=== PATIENT | female | born 1990 | race Caucasian/White ===

== ENCOUNTER 2016-09-03 12:53 | Emergency (ER) | payer MEDICAID ==
[~2016-09-03] VITALS: Wt 72.0 kg
[2016-09-03] MEDS ORDERED: morphine 4 MG/ML VIAL IV STA (14:49)
[2016-09-03] MEDS ORDERED: ONDANSETRON 4 MG INJ IV STA (14:49)
[2016-09-03 15:25] LABS: BASOPHILS % 0.4 % (0.0-2.0); EOSINOPHILS % 0.2 % (0.0-7.0); HEMOGLOBIN 14.6 g/dl (12.0-16.0); LYMPHOCYTES # 1.3 10^3/ul (0.8-2.9); LYMPHOCYTES % 13.7 % (15.0-51.0); MEAN CORPUSCULAR HEMOGLOBIN 31.8 pg (29.0-33.0); MEAN CORPUSCULAR HGB CONC 34.8 g/dl (32.0-37.0); MEAN CORPUSCULAR VOLUME 91.3 fl (82.0-101.0); MEAN PLATELET VOLUME 6.4 fl (7.4-10.4); MONOCYTE # 0.4 10^3/ul (0.3-0.9); MONOCYTES % 4.3 % (0.0-11.0); NEUTROPHIL # 7.9 10^3/ul (1.6-7.5); NEUTROPHILS % 81.4 % (39.0-77.0); PLATELET COUNT 418 10^3/UL (140-440); RED BLOOD COUNT 4.59 10^6/ul (4.20-5.40); RED CELL DISTRIBUTION WIDTH 12.5 % (11.5-14.5); UNCORRECTED WBC 9.8 10^3/ul (4.8-10.8); WHITE BLOOD COUNT 9.8 10^3/ul (4.8-10.8)
[2016-09-03 15:31] LABS: CONDITION 1
[2016-09-03 15:33] LABS: ALBUMIN 4.8 g/dl (3.3-4.9); INR 0.9; PROTIME 12.1 Sec (12.2-14.2); PT RATIO 0.9
[2016-09-03 15:34] LABS: PARTIAL THROMBOPLASTIN TIME 30.7 Sec (25.0-35.0); POTASSIUM 4.1 mmol/L (3.5-5.1)
[2016-09-03] MEDS ORDERED: HYDROmorphONE 1 MG/ML SYG IV STA (15:34)
[2016-09-03 15:36] LABS: ALBUMIN/GLOBULIN RATIO 1.29; BILIRUBIN,INDIRECT 0.3 mg/dl (0-1.1); BILIRUBIN,TOTAL 0.3 mg/dl (0.2-1.3); CREATININE 0.74 mg/dl (0.44-1.00); TOTAL PROTEIN 8.5 g/dl (6.1-8.1)
[2016-09-03 15:37] LABS: CALCIUM 9.7 mg/dl (8.4-10.2)
[2016-09-03] MEDS ORDERED: HYDR-906 PO (15:53)
[2016-09-03] MEDS ORDERED: IBUP-1542 PO (15:54)
[2016-09-03] MEDS ORDERED: ONDA4TAB14 PO (15:54)
[2016-09-03] MEDS ORDERED: IOHEXOL 100 ML ONE (16:04)
[2016-09-03] MEDS ORDERED: SOD CHLORIDE 0.9% 100 ML ONE (16:04)
[2016-09-03] MEDS ORDERED: IOHEXOL 350MG/ML 50 ML BTL ONE (16:04)
--- NOTE | 2016-09-03 16:04 | ERD ---
ER Documentation Chief Complaint Date/Time DATE: 09/03/16 TIME: 15:58 Chief Complaint right knee pain for the past few weeks.pt ran out of pain meds. HPI Patient is a 25-year-old female with past medical history of Von Willebrand's disease, interstitial cystitis who presents to the emergency department with right knee pain. On 08/09/16 the patient had a slip and fall injury on her wooden floors at home. She brings MRI imaging from that day which shows a depressed fracture of the anterior lateral tibial plateau that is depressed approximately 3 mm, grade 2 sprain of the fibular contralateral ligament, large lipohemarthrosis the suprapatellar bursa, tendinosis of the distal patella tendon. On 08/22/16, patient states that she injured her knee while going down her driveway while using her crutches. She reports falling at that time. Patient states that she went to [facility] at that time and had a CT of her right knee without contrast. Patient brings CT report in which shows a comminuted and depressed lateral tibial plateau fracture most consistent with Schatzker II fracture, large joint effusion. Patient states that she saw an culinary specialist after her second injury and was advised that she would need a surgical correction. Per patient, given that she does not have current insurance coverage, surgeon was unable to provide services. Today, patient states that she woke up with severe 10/10 pain. Patient states that she is having numbness from her knee down. She is unsure if she twisted her leg in her sleep because she was not wearing her knee immobilizer. Patient states that she is unable to move her knee and ankle secondary to pain and swelling. She has normal range of motion at her toes. Patient denies any fevers , chills, nausea, vomiting. She has been nonweightbearing to the affected extremity, and ambulating with crutches. Patient denies any new falls or trauma to her right lower extremity today. ROS All systems reviewed and are negative except as per history of present illness. Medications Home Meds Active Scripts Ondansetron (Ondansetron Odt) 4 Mg Tab.rapdis, 4 MG PO Q6H Y for NAUSEA AND/OR VOMITING, #10 TAB Prov:CORRY THEODORE PA-C 09/03/16 Ibuprofen* (Motrin*) 600 Mg Tab, 600 MG PO Q6, #20 TAB Prov:MANISH THEODOREZOILA ROSARIO 09/03/16 Hydrocodone/Acetaminophen (Iota 5-325 Tablet) 1 Each Tablet, 1 TAB PO Q6H Y for PAIN, #10 TAB Prov:CORRY THEODORE ABRAHAM 09/03/16 PMhx/Soc History of Surgery: Yes (bladder, appendix) Anesthesia Reaction: No Hx Neurological Disorder: No Hx Respiratory Disorders: No Hx Cardiac Disorders: No Hx Psychiatric Problems: No Hx Miscellaneous Medical Probl: Yes (interstial cystitis, Von Willenbrand) Hx Alcohol Use: Yes (social) Hx Substance Use: No Hx Tobacco Use: No FmHx Family History: No diabetes Physical Exam Vitals Vital Signs Date Time Temp Pulse Resp B/P Pulse Ox O2 Delivery O2 Flow Rate FiO2 09/03/16 17:25 98.1 98 18 140/95 99 Room Air 09/03/16 13:03 98.6 103 20 138/79 98 Physical Exam GENERAL: Well-developed, well-nourished female. Appears in pain. Crying. HEAD: Normocephalic, atraumatic. EYES: Pupils are equally reactive bilaterally. EOMs grossly intact. No conjunctival erythema. ENT: Moist mucous membranes. No uvula deviation. No kissing tonsils. NECK: Supple. No lymphadenopathy or thyromegaly. No meningismus. LUNG: Clear to auscultation bilaterally. No rhonchi, wheezing, rales or coarse breath sounds. HEART: Regular rate and rhythm. No murmurs, rubs or gallops. ABDOMEN: No scars, ecchymosis or rashes noted. Soft, nontender, and nondistended. Positive bowel sounds in all four quadrants. No rebound tenderness , no guarding. (-) McBurneys point tenderness. No CVA tenderness. BACK: No midline tenderness. EXTREMITIES: Equal pulses bilaterally. No peripheral clubbing, cyanosis or edema. No unilateral leg swelling. NEUROLOGIC: Alert and oriented. Moving all four extremities without any difficulty. Normal speech. Steady gait. SKIN: Normal color. Warm and dry. No rashes or lesions. RIGHT KNEE: Knee immobilizer removed. No obvious deformity, erythema, ecchymosis. +Soft tissue swelling. Skin intact. Decreased range of motion secondary to pain and swelling. Tender to palpation of anterior knee and lateral knee. Unable to distinguish light touch. 2+ DP and DT pulses. Result Diagram: 09/03/16 1515 09/03/16 1515 Results 24 hrs Laboratory Tests Test 09/03/16 15:15 Activated Partial Thromboplast Time 30.7Sec Alanine Aminotransferase (ALT/SGPT) 20IU/L Albumin 4.8g/dl Albumin/Globulin Ratio 1.29 Alkaline Phosphatase 89IU/L Anion Gap 20 Aspartate Amino Transf (AST/SGOT) 20IU/L Basophils # 0.010^3/ul Basophils % 0.4% Blood Morphology Comment Blood Urea Nitrogen 17mg/dl Calcium Level 9.7mg/dl Carbon Dioxide Level 24mmol/L Chloride Level 103mmol/L Creatinine 0.74mg/dl Direct Bilirubin 0.00mg/dl Eosinophils # 0.010^3/ul Eosinophils % 0.2% Globulin 3.70g/dl Glucose Level 84mg/dl Hematocrit 42.0% Hemoglobin 14.6g/dl INR International Normalized Ratio 0.90 Indirect Bilirubin 0.3mg/dl Lymphocytes # 1.310^3/ul Lymphocytes % 13.7% Mean Corpuscular Hemoglobin 31.8pg Mean Corpuscular Hemoglobin Concent 34.8g/dl Mean Corpuscular Volume 91.3fl Mean Platelet Volume 6.4fl Monocytes # 0.410^3/ul Monocytes % 4.3% Neutrophils # 7.910^3/ul Neutrophils % 81.4% Nucleated Red Blood Cells # 0.010^3/ul Nucleated Red Blood Cells % 0.0/100WBC Platelet Count 46272^3/UL Potassium Level 4.1mmol/L Prothrombin Time 12.1Sec Prothrombin Time Ratio 0.9 Red Blood Count 4.5910^6/ul Red Cell Distribution Width 12.5% Sodium Level 143mmol/L Total Bilirubin 0.3mg/dl Total Protein 8.5g/dl White Blood Count 9.810^3/ul Current Medications Medications (Trade) Dose Ordered Sig/[place]ina Route PRN Reason Start Time Stop Time Status Last Admin Dose Admin Morphine Sulfate (morphine) 4 mg ONCE STAT IV 09/03/16 14:49 09/03/16 14:52 DC 09/03/16 15:05 Ondansetron HCl (Zofran Inj) 4 mg ONCE STAT IV 09/03/16 14:49 09/03/16 14:52 DC 09/03/16 15:05 Hydromorphone HCl (Dilaudid) 1 mg ONCE STAT IV 09/03/16 15:34 09/03/16 15:36 DC 09/03/16 15:41 IV Flush 10 ml 10 ml STK-MED ONCE .ROUTE 09/03/16 16:04 09/03/16 16:05 DC 09/03/16 16:36 Sodium Chloride 100 ml @ ud STK-MED ONCE .ROUTE 09/03/16 16:04 09/03/16 16:05 DC 09/03/16 16:37 Iohexol (Omnipaque) 100 ml @ ud STK-MED ONCE .ROUTE 09/03/16 16:04 09/03/16 16:05 DC 09/03/16 16:37 Iohexol (Omnipaque 350mg/ ml) 50 ml STK-MED ONCE .ROUTE 09/03/16 16:04 09/03/16 16:05 DC 09/03/16 16:37 Diclofenac Sodium (Dyloject) 37.5 mg ONCE STAT IV 09/03/16 16:38 09/03/16 16:40 DC 09/03/16 16:48 Procedures/MDM ED COURSE: The patient was stable throughout ED course. I kept the patient and/or family informed of laboratory and diagnostic imaging results throughout the ED course. DIAGNOSTIC IMAGING: Read by radiologist. DIAGNOSTIC IMAGING REPORT Patient: HARLEY ENAMORADO : 1990 Age: 25 Sex: F MR #: [id number] DOS: 09/03/16 1449 Ordering MD: CORRY THEODORE PA-C Location: [facility] Room/Bed: PROCEDURE: CT scan of the pelvis, and lower extremities with contrast. CT angiogram of the abdomen, pelvis, and lower extremities. CLINICAL INDICATION: Pelvic pain. Bilateral lower extremity pain. History of trauma to the right knee. Numbness in the right lower extremity. TECHNIQUE: CT scan of the pelvis, and lower extremities with contrast was performed with helical axial sections. The patient was scanned during intravenous administration of 120 ml of Omnipaque 350. 2-D coronal reformatted images were obtained from the axial source images. In addition, 3-D post processing was performed. Total exam DLP is 1135.26 mGy-cm. CTDIvol is 123.23 mGy. One or more of the following dose reduction techniques were used: Automated exposure control, adjustment of the mA and/or kV according to patient size, use of iterative reconstruction technique. COMPARISON: None available FINDINGS: CT pelvis: There is no pelvic lymphadenopathy or mass. The bladder and distal ureters are normal. The periappendiceal region is unremarkable with no evidence of appendicitis. There has been prior surgery in the region of the cecum. The bowel and mesentery are otherwise normal. There is no free fluid or free gas. The osseous structures of the pelvis are unremarkable with no fracture or lytic lesion. There is a right knee lateral tibial plateau fracture with mild inferior displacement. The osseous structures are otherwise unremarkable with no other fracture or lytic lesion. There is a large amount of fluid in the right knee joint. The soft tissues of the lower extremities are otherwise normal. CT angiogram: The common iliac arteries, internal iliac arteries, and external iliac arteries are normal. The common femoral arteries are normal. The superficial femoral arteries are normal and patent bilaterally. The popliteal arteries are normal and patent bilaterally. The arteries in the calves are normal and patent bilaterally. IMPRESSION: 1. Prior surgery in the region of the cecum. 2. Right knee lateral tibial plateau fracture with mild inferior displacement. 3. Large amount of fluid in the right knee joint. 4. Normal CT angiogram of the pelvis and both lower extremities. RPTAT: QQ .Mike Jaime MD, MD Date Time Electronically viewed and signed by .Mike Jaime MD, MD on 09/03/2016 16:35 .R/ CC: CORRY THEODORE PA-C Splint Application: The patient was verbally consented at bedside prior to knee immobilizer re- application. Patient's knee immobilizer was removed prior to examination/CT imaging. Patient was explained the risks, benefits and alternatives to this procedure. The patient was neurovascularly intact prior to and status post application of the splint. The patient tolerated the procedure well with no complications. Splint type: knee immobilizer Extremity: R knee Indication: tibial plateau fracture MEDICATIONS GIVEN: Morphine, Dilaudid, Dyloject Patient tolerated medication well with no adverse reactions. Patient reported some improvement in pain. MEDICAL DECISION MAKING: This is a 25 year old old who presents with severe right knee pain s/p numerous fall injuries. Patient was previously diagnosed with a tibial plateau fracture and told that she would need surgical correction. Vital signs were reviewed. Patient was afebrile. Given that patient reported new onset of numbness, CT angiogram of R lower extremity was ordered. Supervising physician, Dr. Urbina, was consulted prior to ordering these studies. CT angiogram showed Prior surgery in the region of the cecum. Right knee lateral tibial plateau fracture with mild inferior displacement. Large amount of fluid in the right knee joint. Normal CT angiogram of the pelvis and both lower extremities Given these findings, the patients presentation is most consistent with tibial plateau fracture with mild inferior displacement. No new fractures or dislocations were noted compared to previous reports. Patient has adequate blood flow to the extremities. Her numbness may be due to significant swelling and possible compression to a lower extremity nerve. At this time, unable to rule out any meniscus and knee ligament injuries. Patient was placed in a knee immobilizer and advised to remain NWB to affected extremity. Given that patient' s lack of insurance coverage, patient was advised that she would need to go to a [facility] facility for her surgical correction. [facility] information provided. PRESCRIPTIONS: Iota, Ibuprofen, Zofran Patient requested that she be given Percocet for pain. I advised her that I would not be able to prescribe her Percocet given that she was prescribed Percocet #60 tabs on 08/25/16 and #15 tabs on 06/09/16 per [facility] report. DISCHARGE: At this time, patient is stable for discharge and outpatient management. Discussed case with Dr. Urbina, supervising physician, who agrees with above plan. I have instructed the patient to go to [facility] for further management of her injury. I have instructed the patient to promptly return to the ER for any new or worsening symptoms including increased pain, swelling, redness, warmth or fever. The patient and/or family expressed understanding of and agreement with this plan. All questions were answered. Home care instructions were provided. Departure Diagnosis: Primary Impression: Tibial plateau fracture, right Encounter type: initial encounter Fracture type: closed Qualified Code: S82.141A - Tibial plateau fracture, right, closed, initial encounter Condition: Stable Patient Instructions: Fracture, Lower Extremity Referrals: [facility] YOU HAVE RECEIVED A MEDICAL SCREENING EXAM AND THE RESULTS INDICATE THAT YOU DO NOT HAVE A CONDITION THAT REQUIRES URGENT TREATMENT IN THE EMERGENCY DEPARTMENT. FURTHER EVALUATION AND TREATMENT OF YOUR CONDITION CAN WAIT UNTIL YOU ARE SEEN IN YOUR DOCTORS OFFICE WITHIN THE NEXT 1-2 DAYS. IT IS YOUR RESPONSIBILITY TO MAKE AN APPOINTMENT FOR FOLOW-UP CARE. IF YOU HAVE A PRIMARY DOCTOR --you should call your primary doctor and schedule an appointment IF YOU DO NOT HAVE A PRIMARY DOCTOR YOU CAN CALL OUR PHYSICIAN REFERRAL HOTLINE AT IF YOU CAN NOT AFFORD TO SEE A PHYSICIAN YOU CAN CHOSE FROM THE FOLLOWING [facility] [address] [facility]. [facility] [address] [facility] [address] [facility] [address] [facility]. [facility] [address] [facility]. [facility] [address] [facility]. [facility] YOU HAVE RECEIVED A MEDICAL SCREENING EXAM AND THE RESULTS INDICATE THAT YOU DO NOT HAVE A CONDITION THAT REQUIRES URGENT TREATMENT IN THE EMERGENCY DEPARTMENT. FURTHER EVALUATION AND TREATMENT OF YOUR CONDITION CAN WAIT UNTIL YOU ARE SEEN IN YOUR DOCTORS OFFICE WITHIN THE NEXT 1-2 DAYS. IT IS YOUR RESPONSIBILITY TO MAKE AN APPOINTMENT FOR FOLOW-UP CARE. IF YOU HAVE A PRIMARY DOCTOR --you should call your primary doctor and schedule and appointment IF YOU DO NOT HAVE A PRIMARY DOCTOR YOU CAN CALL OUR PHYSICIAN REFERRAL HOTLINE AT . IF YOU CAN NOT AFFORD TO SEE A PHYSICIAN YOU CAN CHOSE FROM THE FOLLOWING [facility] INSTITUTIONS: [facility] [address] [place] [address] [facility] [address] [place] [address] [facility] [address] [place] [address] [facility] Hours: Mon-Fri 9:00 AM - 5:00 PM Additional Instructions: Given patient's insurance coverage, I advised the patient to go immediately to [facility] for further evaluation and treatment for her fracture. Take Iota and Ibuprofen for pain. Take Zofran for nausea. Patient advised to keep knee immobilizer on and remain non-weight bearing to affected extremity. Patient has crutches to use. CORRY THEODORE PA-C Sep 03, 2016 16:04
--- NOTE | 2016-09-03 16:36 | RADRPT ---
PROCEDURE: CT scan of the pelvis, and lower extremities with contrast. CT angiogram of the abdomen , pelvis, and lower extremities. CLINICAL INDICATION: Pelvic pain. Bilateral lower extremity pain. History of trauma to the right knee. Numbness in the right lower extremity. TECHNIQUE: CT scan of the pelvis, and lower extremities with contrast was performed with helical a xial sections. The patient was scanned during intravenous administration of 120 ml of Omnipaque 350 . 2-D coronal reformatted images were obtained from the axial source images. In addition, 3-D post processing was performed. Total exam DLP is 1135.26 mGy-cm. CTDIvol is 123.23 mGy. One or more o f the following dose reduction techniques were used: Automated exposure control, adjustment of the m A and/or kV according to patient size, use of iterative reconstruction technique. COMPARISON: None available FINDINGS: CT pelvis: There is no pelvic lymphadenopathy or mass. The bladder and distal ureters are normal. The periappendiceal region is unremarkable with no evidence of appendicitis. There has been prior surgery in the region of the cecum. The bowel and mesentery are otherwise norm al. There is no free fluid or free gas. The osseous structures of the pelvis are unremarkable with no fracture or lytic lesion. There is a r ight knee lateral tibial plateau fracture with mild inferior displacement. The osseous structures a re otherwise unremarkable with no other fracture or lytic lesion. There is a large amount of fluid in the right knee joint. The soft tissues of the lower extremities are otherwise normal. CT angiogram: The common iliac arteries, internal iliac arteries, and external iliac arteries are normal. The com mon femoral arteries are normal. The superficial femoral arteries are normal and patent bilaterally. The popliteal arteries are normal and patent bilaterally. The arteries in the calves are normal and patent bilaterally. IMPRESSION: 1. Prior surgery in the region of the cecum. 2. Right knee lateral tibial plateau fracture with mild inferior displacement. 3. Large amount of fluid in the right knee joint. 4. Normal CT angiogram of the pelvis and both lower extremities. RPTAT: QQ .Mike Jaime MD, MD Date Time Electronically viewed and signed by .Mike Jaime MD, MD on 09/03/2016 16:35 .R/
[2016-09-03] MEDS ORDERED: DICLOFENAC SODIUM 37.5 MG/ML VIAL IV STA (16:38)
[2016-09-03 17:25] VITALS: BP 140/95; PULSE 98; RESP 18; TEMP 98.1
== END 2016-09-03 17:25 | disposition home or self-care (01) ==
LOC: FTE 12:53
DX: S82.141A Displaced bicondylar fracture of right tibia, initial encounter for closed fracture (principal); W18.39XA Other fall on same level, initial encounter; Y92.9 Unspecified place or not applicable
CPT/HCPCS: 29505; 73706; 80053; 85025; 85610; 85730; 96374; 96375; J1170; J2270; J2405; Q9967; Z7502; Z7610

== ENCOUNTER 2016-12-28 12:00 | Inpatient (IN) | payer MEDICAID, OTHER ==
[~2016-12-28] VITALS: Ht 157.5 cm; Wt 70.5 kg
[~2016-12-28 12:00] MED LIST: HYDR-906 PO; IBUP-1542 PO; ONDA4TAB14 PO
[2016-12-28 12:24] VITALS: Ht 157.5 cm; Wt 70.5 kg
[2016-12-28] MEDS ORDERED: ONDANSETRON 4 MG INJ IV STA (14:34)
[2016-12-28] MEDS ORDERED: HYDROmorphONE 1 MG/ML SYG IV STA (14:34)
[2016-12-28] MEDS ORDERED: SOD CHLORIDE 0.9% 1,000 ML IV STA (14:34)
[2016-12-28] MEDS ORDERED: CLON-412 PO (14:50)
[2016-12-28] MEDS ORDERED: TRAZ100T15 PO (14:51)
[2016-12-28] MEDS ORDERED: BUPR300T48 PO (14:51)
[2016-12-28] MEDS ORDERED: SERT100T PO (14:51)
[2016-12-28] MEDS ORDERED: METH54TA4 PO (14:51)
[2016-12-28 14:58] LABS: ADD SCAN DIFF NO
[2016-12-28 15:01] LABS: BASOPHILS % 0.3 % (0.0-2.0); EOSINOPHILS % 0.2 % (0.0-7.0); HEMATOCRIT 37.2 % (37.0-47.0); HEMOGLOBIN 12.2 g/dl (12.0-16.0); LYMPHOCYTES # 0.8 10^3/ul (0.8-2.9); LYMPHOCYTES % 13.2 % (15.0-51.0); MEAN CORPUSCULAR HEMOGLOBIN 28.4 pg (29.0-33.0); MEAN CORPUSCULAR HGB CONC 32.8 g/dl (32.0-37.0); MEAN CORPUSCULAR VOLUME 86.7 fl (82.0-101.0); MEAN PLATELET VOLUME 9.3 fl (7.4-10.4); MONOCYTE # 0.3 10^3/ul (0.3-0.9); MONOCYTES % 4.4 % (0.0-11.0); NEUTROPHIL # 4.7 10^3/ul (1.6-7.5); NEUTROPHILS % 81.7 % (39.0-77.0); PLATELET COUNT 322 10^3/UL (140-415); RED BLOOD COUNT 4.29 10^6/ul (4.20-5.40); RED CELL DISTRIBUTION WIDTH 13.1 % (11.5-14.5); WHITE BLOOD COUNT 5.7 10^3/ul (4.8-10.8)
[2016-12-28 15:15] LABS: ALBUMIN 4.4 g/dl (3.3-4.9)
[2016-12-28 15:16] LABS: POTASSIUM 3.6 mmol/L (3.5-5.1)
[2016-12-28 15:18] LABS: ALBUMIN/GLOBULIN RATIO 1.41; BILIRUBIN,INDIRECT 0.2 mg/dl (0-1.1); BILIRUBIN,TOTAL 0.2 mg/dl (0.2-1.3); CREATININE 0.82 mg/dl (0.44-1.00); TOTAL PROTEIN 7.5 g/dl (6.1-8.1)
[2016-12-28 15:19] LABS: CALCIUM 9.4 mg/dl (8.4-10.2)
--- NOTE | 2016-12-28 15:20 | RADRPT ---
PROCEDURE: XR Chest. CLINICAL INDICATION: Abdominal pain. TECHNIQUE: Single frontal view of the chest was obtained COMPARISON: No. FINDINGS: The soft tissues are normal. The bony elements are normal. The heart, cardiomediastinal silhouette and hilar structures are normal. The pulmonary vasculature is normal. There is a left-sided aorta. The lungs are clear. The costophrenic angles are normal. IMPRESSION: 1. Normal chest x-ray. RPTAT:AAJJ Physician Ann Marie Date Time Electronically viewed and signed by Kumar Rainey Physician on 12/28/2016 15:20 SHARON/
[2016-12-28 15:22] LABS: ADD UMIC YES; URINE BILIRUBIN (Dip) NEGATIVE (NEGATIVE); URINE BLOOD (Dip) 1+ (NEGATIVE); URINE COLOR LT. YELLOW (YELLOW); URINE GLUCOSE (Dip) NEGATIVE (NEGATIVE); URINE KETONES (Dip) NEGATIVE (NEGATIVE); URINE LEUKOCYTE ESTERASE (Dip) NEGATIVE (NEGATIVE); URINE NITRITE (Dip) NEGATIVE (NEGATIVE); URINE TOTAL PROTEIN (Dip) NEGATIVE (NEGATIVE); URINE UROBILINOGEN (Dip) 0.2 E.U./dL (0.1-1.0)
[2016-12-28 15:33] LABS: INR 0.91; PROTIME 12.3 Sec (12.2-14.2)
[2016-12-28 15:34] LABS: PARTIAL THROMBOPLASTIN TIME 32.1 Sec (25.0-35.0)
[2016-12-28 15:48] LABS: SQUAMOUS EPITHELIAL CELL,UR FEW; URINE RBCS 0-2 /HPF (0)
[2016-12-28] MEDS ORDERED: METOCLOPRAMIDE 10 MG INJ IV STA (15:57)
[2016-12-28] MEDS ORDERED: DICLOFENAC SODIUM 37.5 MG/ML VIAL IV STA (15:57)
[2016-12-28] MEDS ORDERED: HYDROmorphONE 1 MG/ML SYG IV PRN ×3 (17:00→20:00)
--- NOTE | 2016-12-28 18:11 | RADRPT ---
PROCEDURE: Retroperitoneal US. CLINICAL INDICATION: Flank pain, interstitial cystitis TECHNIQUE: Multiple sonographic images of the kidneys and retroperitoneum were obtained. The imag es were reviewed on a PACS workstation. COMPARISON: No prior studies are available for comparison. FINDINGS: The kidneys are normal in size, contour, cortical thickness and cortical echogenicity. The right kidney measures 11.7 cm. The left kidney measures 10.7 cm. No kidney stones are visualized. There is no evidence for hydronephrosis. The urinary bladder is decompressed by a Alcantara catheter and not seen. RPTAT: AA IMPRESSION: Unremarkable retroperitoneal ultrasound. Urinary bladder not visualized. .Alf Cristobal MD, MD Date Time Electronically viewed and signed by .Alf Cristobal MD, on 12/28/2016 18:11 .S/
[2016-12-28 19:00] VITALS: TEMP 98.9
[2016-12-28] MEDS: ONDANSETRON 4 MG INJ IV PRN ×2 (19:24→22:41)
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
--- NOTE | 2016-12-28 19:57 | QN ---
Documentation Comment a/p abd pain interstitial cystitis plan per order DENVER MITCHELL MD December 28, 2016 19:57
[2016-12-28] MEDS ORDERED: SOD CHLORIDE 0.9% 1,000 ML IV ONE (20:00)
[2016-12-28] MEDS ORDERED: BISACODYL (EC) 5 MG TAB PO PRN (20:00)
[2016-12-28] MEDS ORDERED: MAGNESIUM HYDROXIDE 30ML CUP PO PRN (20:00)
[2016-12-28] MEDS ORDERED: ZOLPIDEM 5 MG TAB PO PRN (20:00)
[2016-12-28] MEDS ORDERED: OXYCODONE/ACETAMINOPHEN (5/325) TAB PO PRN (20:00)
[2016-12-28] MEDS ORDERED: ACETAMINOPHEN 325 MG TAB PO PRN (20:00)
[2016-12-28] MEDS ORDERED: NACL 0.9% 3 ML SYG IV SCH (20:00)
[2016-12-28] MEDS: SOD CHLORIDE 0.9% 1,000 ML IV SCH (20:52)
[2016-12-28] MEDS: TOLTERODINE (SR) 4 MG CAP PO SCH (20:52)
[2016-12-28] MEDS ORDERED: SERTRALINE 100 MG TAB PO ONE (22:00)
[2016-12-28] MEDS: clonAZEPAM 0.5 MG TAB PO SCH (22:41)
[2016-12-28] MEDS: HYDROmorphONE 1 MG/ML SYG IV PRN (22:42)
--- NOTE | 2016-12-28 22:49 | QN ---
Documentation Comment [id number] DENVER MITCHELL MD December 28, 2016 22:49
[2016-12-28] MEDS ORDERED: METOCLOPRAMIDE 10 MG INJ IV PRN (23:30)
[2016-12-29] VITALS: BP 140/92; RESP 18
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
--- NOTE | 2016-12-29 05:13 | CONS ---
DATE OF ADMISSION: 12/28/2016 DATE OF CONSULTATION: 12/28/2016 REQUESTING PHYSICIAN: Spencer Mitchell MD Dear Spencer: Thank you for asking me to see this patient in urological consultation. HISTORY OF PRESENT ILLNESS: This is a 26-year-old female who presented to the emergency room gagan reynoso of abdominal pain and bladder spasm that are caused by her "interstitial cystitis." The patient s tated that she has a history of interstitial cystitis for over 9 years. She was initially in [place] f or about 7 years where she had seen a urologist over there, underwent cystoscopy, bladder biopsy, bl adder dilatation and instillation of DMSO and the patient moved to [place] about 2 years ago and she has not had any urologist after she moved here until recently where she started having a flareup of her interstitial cystitis and she has seen Kaushik, who I have requested her records fro m the previous doctor in [place] and she is her urologist. The patient states that when she has the fl areup she does have mostly cramping after she urinates and she does not know what is the bladder cap acity. She denies having any urinary tract infection and she could sleep the night without having t o get up and the urination itself is not painful. It is after she urinates and finish that she has a bladder spasm. She has been doing an interstitial cystitis diet and that avoiding any coffee or t ea or acidy juices or food, avoiding spicy food and alcohol and she thinks that also stress may aggr avate her condition. She is known to have von Willebrand's disease. PAST MEDICAL HISTORY: Also includes the patient is a 2 and she has 2 children, ages 9 and 7 . The patient also did have ovarian cyst for which she underwent surgery and they removed her appen catherine at the same time. ALLERGIES: 1. THE PATIENT IS ALLERGIC TO . 2. HYDROCODONE. 3. MORPHINE. PRESENT MEDICATIONS: 1. She is on Lovenox. 2. Protonix. 3. Zofran p.r.n. 4. p.r.n. 5. Percocet. 6. Dilaudid. 7. Colace. 8. Milk of magnesia. 9. Dulcolax. 10. Ambien. PHYSICAL EXAMINATION: GENERAL: Reveals a 26-year-old female. VITAL SIGNS: Her temperature is 98.9, pulse is 97, respiration 16, blood pressure 144/106. ABDOMEN: Soft. She does have some suprapubic tenderness. She does have a scar in the lower abdome n from her appendectomy and the right ovarian cystectomy. Also the patient has had surgery on her r ight knee area. PELVIC EXAM: No mass and no discharge. She does have an indwelling Alcantara catheter and she has requ ested to have the Alcantara catheter so she does not have to urinate and have any spasm after she voids. LABORATORY DATA: CBC shows a white count of 5.7, hemoglobin 12.2, hematocrit is 37.2. BUN is 7, cr eatinine 0.82, sodium 141, potassium 3.6, chloride 102, CO2 24. PT 12.3, INR 0.91. Urinalysis show s 1+ occult blood, otherwise negative. Urine culture is pending. Renal ultrasound is normal. IMPRESSION: History of interstitial cystitis with flareup. RECOMMENDATION: To try to manage her symptomatically and give her antispasmodic and once she is com fortable and stable, then she could go home and follow up with her urologist, Dr. Deanna Faulkner. Dictated By: KELLIE REAL MD BB/NTS Conf#: [id number] DID#: [id number] CC: SPENCER MITCHELL MD; KELLIE REAL MD;*End*
[2016-12-29] MEDS: HYDROmorphONE 1 MG/ML SYG IV PRN ×5 (05:16→17:25)
[2016-12-29] MEDS ORDERED: PANTOPRAZOLE 40 MG INJ IV SCH (06:00)
[2016-12-29 07:48] VITALS: BP 149/93; RESP 16
[2016-12-29] MEDS: SERTRALINE 100 MG TAB PO SCH ×2 (08:20→20:39)
[2016-12-29] MEDS: BUPROPION (XL) 150 MG TAB PO SCH (08:26)
[2016-12-29] MEDS: TOLTERODINE (SR) 4 MG CAP PO SCH (08:26)
[2016-12-29] MEDS: clonAZEPAM 0.5 MG TAB PO SCH ×2 (08:27→20:34)
[2016-12-29] MEDS ORDERED: ENOXAPARIN 40 MG/0.4 ML SYG SC SCH (09:00)
[2016-12-29] MEDS ORDERED: IBUPROFEN 600 MG TAB PO SCH (11:03)
[2016-12-29] MEDS: ONDANSETRON 4 MG INJ IV PRN (14:40)
[2016-12-29] MEDS: SOD CHLORIDE 0.9% 1,000 ML IV SCH (15:54)
[2016-12-29] MEDS: IBUPROFEN 600 MG TAB PO SCH ×2 (16:30→20:34)
[2016-12-29 19:56] VITALS: BP 156/102; RESP 18
[2016-12-29] MEDS: HYDROmorphONE 4 MG TAB PO PRN (20:35)
[2016-12-29] MEDS ORDERED: traZODone 100 MG TAB PO SCH (21:00)
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
--- NOTE | 2016-12-29 22:21 | PN ---
DATE: 12/29/2016 SUBJECTIVE: Abdominal lower pelvic pain and history of interstitial cystitis. The patient states t hat she has pain and the pain medications are not helping and not controlling her pain. OBJECTIVE: Temperature is 99.6, pulse is 93, respirations 16, blood pressure 149/93. LABORATORY DATA: The urine culture shows no growth in 1 day. I have talked to the patient in detail. I reviewed her records that were sent here from [place] and sically she has been getting hydrodilation of the bladder and instillation of DMSO and also Clorpact in. I did check with the pharmacy if they have these in the hospital and they said no they do not h ave it. They are not on the formulary. Therefore, we have to request it. I do not know when they would get it. So, I offered the patient that I do a cystoscopy and hydrodilation with gravity and s he could later on followup as an outpatient with the doctor who was seeing her here, Dr. Arminda Faulkner . She did not have the procedure done tomorrow. I also offered her that, because of her pain and t hat she takes a lot of pain medications, I am concerned about problem with addiction and she acknowl edged that. So I am hoping that maybe we could get a pain management doctor to see her and manage h er pain medications. Dictated By: KELLIE REAL MD BB/AYAN Conf#: [id number] DID#: [id number] CC: DENVER MITCHELL MD;*EndCC*
[2016-12-30] MEDS: HYDROmorphONE 1 MG/ML SYG IV PRN ×6 (01:23→19:04)
[2016-12-30] MEDS: SOD CHLORIDE 0.9% 1,000 ML IV SCH ×2 (03:44→22:24)
[2016-12-30] MEDS: DOCUSATE SODIUM 100 MG CAP PO PRN ×2 (04:35→21:58)
[2016-12-30] MEDS: HYDROmorphONE 4 MG TAB PO PRN (07:05)
[2016-12-30] MEDS: PANTOPRAZOLE (EC) 40 MG TAB PO SCH (07:05)
[2016-12-30 08:00] VITALS: BP 123/89; PULSE 98; RESP 18
[2016-12-30] MEDS: SERTRALINE 100 MG TAB PO SCH ×2 (09:00→22:04)
[2016-12-30] MEDS: TOLTERODINE (SR) 4 MG CAP PO SCH (09:23)
[2016-12-30] MEDS: BUPROPION (XL) 150 MG TAB PO SCH (09:23)
[2016-12-30] MEDS: IBUPROFEN 600 MG TAB PO SCH ×2 (09:23→12:41)
[2016-12-30] MEDS: clonAZEPAM 0.5 MG TAB PO SCH ×2 (09:33→21:58)
[2016-12-30 16:34] VITALS: BP 180/117; PULSE 86; RESP 20
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
[2016-12-30 19:49] VITALS: BP 172/103; RESP 18
[2016-12-30] MEDS: HYDROmorphONE 2 MG/ML SYG IV PRN (21:58)
[2016-12-30 22:05] LABS: ADD SCAN DIFF NO
[2016-12-30 22:17] LABS: BASOPHILS % 0.3 % (0.0-2.0); EOSINOPHILS # 0.1 10^3/ul (0.0-0.5); EOSINOPHILS % 1.2 % (0.0-7.0); HEMATOCRIT 36.8 % (37.0-47.0); HEMOGLOBIN 12.1 g/dl (12.0-16.0); LYMPHOCYTES # 1.6 10^3/ul (0.8-2.9); LYMPHOCYTES % 23.9 % (15.0-51.0); MEAN CORPUSCULAR HEMOGLOBIN 28.9 pg (29.0-33.0); MEAN CORPUSCULAR HGB CONC 32.9 g/dl (32.0-37.0); MEAN CORPUSCULAR VOLUME 87.8 fl (82.0-101.0); MEAN PLATELET VOLUME 9.1 fl (7.4-10.4); MONOCYTE # 0.4 10^3/ul (0.3-0.9); NEUTROPHIL # 4.4 10^3/ul (1.6-7.5); NEUTROPHILS % 68.4 % (39.0-77.0); PLATELET COUNT 281 10^3/UL (140-415); RED BLOOD COUNT 4.19 10^6/ul (4.20-5.40); WHITE BLOOD COUNT 6.5 10^3/ul (4.8-10.8)
[2016-12-30 22:26] LABS: INR 0.91; PROTIME 12.3 Sec (12.2-14.2)
[2016-12-30 22:27] LABS: ALBUMIN 3.9 g/dl (3.3-4.9)
[2016-12-30 22:28] LABS: POTASSIUM 3.3 mmol/L (3.5-5.1)
[2016-12-30 22:30] LABS: ALBUMIN/GLOBULIN RATIO 1.21; BILIRUBIN,INDIRECT 0.1 mg/dl (0-1.1); BILIRUBIN,TOTAL 0.1 mg/dl (0.2-1.3); CREATININE 0.7 mg/dl (0.44-1.00); TOTAL PROTEIN 7.1 g/dl (6.1-8.1)
[2016-12-30 22:31] LABS: CALCIUM 8.8 mg/dl (8.4-10.2)
[2016-12-30 22:43] VITALS: BP_SYST 176; RESP 18
--- NOTE | 2016-12-30 23:26 | PN ---
DATE: 12/30/2016 SUBJECTIVE: The patient complains of pelvic pain and she states that the pain is severe because of her ____. OBJECTIVE: VITAL SIGNS: Temperature is 98.8, the pulse is 105, respiration is 18, blood pressure 172/103. LABORATORY DATA: Her urine culture so far, no growth in 48 hours. Blood cultures also are negative . IMPRESSION: History of interstitial cystitis with flare up. DISCUSSION: Again I had a discussion with her today and, earlier in the day, I did talk to the phar whit and requested that they get DMSO for intravesical instillation. The pharmacy responded that th ey will get it and they will have it tomorrow. Therefore, I did schedule the patient for tomorrow i n the evening around 5:30 p.m. to do a cystoscopy, hydrodilatation of the bladder, and instillation of DMSO in the bladder. I have discussed this with the patient and she asked me how many of these I have done. I have told her I do not recall doing any one of these in the past 5 years and this is a simple procedure to be doing, by looking inside the bladder and dilatation of the bladder with nor mal saline, and then putting a catheter and put the DMSO, keep that there for 15 minutes and drainin g the catheter. I asked her if she is not comfortable that I told her that I have not done in this particular procedure in 5 years or more. I could not doing it for her, she has to be feeling comfor table, that is what we are going to have to do. She expressed her willingness and acceptance that I will do that. I also discussed with her the fact that she has von Willebrand disease and that the patient will need a hematology consultation. I did discuss that with Dr. Spencer Mitchell and he did as k Dr. Brennan to see her in hematology consultation. Also because of the pain problem that the patient h as been having, also a pain management consultation was requested and Dr. Sylvester has seen her this evening. IMPRESSION: History of interstitial cystitis. PLAN: If she is medically cleared and the hematology consultation with Dr. Brennan is okay with her to g o ahead and do the procedure, then we shall proceed and do the cystoscopy, hydrodilatation of the bl adder and instillation of DMSO. I discussed with her that after the procedure, then we shall leave the Alcantara catheter in, so she does not have to urinate quite often. Dictated By: KELLIE REAL MD BB/AYAN Conf#: [id number] DID#: [id number] CC: SPENCER MITCHELL MD;*EndCC*
[2016-12-31] VITALS (19 sets, daily range): BP systolic 112–157; BP diastolic 64–105; PULSE 84–112; RESP 10–27
[2016-12-31] MEDS: HYDROmorphONE 2 MG/ML SYG IV PRN ×4 (01:39→15:18)
[2016-12-31] MEDS: PANTOPRAZOLE (EC) 40 MG TAB PO SCH (05:40)
[2016-12-31] MEDS: ONDANSETRON 4 MG INJ IV PRN ×2 (05:48→23:40)
[2016-12-31] MEDS ORDERED: CEFAZOLIN 1 GM INJ ONE (07:00)
[2016-12-31] MEDS: clonAZEPAM 0.5 MG TAB PO SCH ×2 (08:26→21:30)
[2016-12-31] MEDS: TOLTERODINE (SR) 4 MG CAP PO SCH (08:26)
[2016-12-31] MEDS: BUPROPION (XL) 150 MG TAB PO SCH (08:26)
[2016-12-31] MEDS ORDERED: POTASSIUM CHLORIDE (SR) 20 MEQ TAB PO STA (09:48)
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
--- NOTE | 2016-12-31 10:28 | CONS ---
DATE OF ADMISSION: 12/30/2016 DATE OF CONSULTATION: 12/31/2016 CONSULTATION: Pain management consultation. REFERRING PHYSICIAN: Dr. Spencer Mitchell HISTORY OF PRESENT ILLNESS: This is a very pleasant 26-year-old female who has a history of interst itial cystitis who has had multiple procedures, multiple hospitalizations in the past for the above who states she began to have another bought approximately 3 days prior to this presentation. She was not able to control this current episode with her usual pain medication which includes Percocet at home. She describes the pain as being bilateral midline pelvis. She denies radiations into her back , flanks, bilateral lower extremities. States the pain does make her nauseous, but she does not vom it. She describes her pain as baseline 10 when she is not hospitalized and at this point 1010, o r extremely uncomfortable, as she described, at moderate intensity before she is hospitalized as an outpatient. She does not use any other pain control medications. There is no past medical history of addictions, alcohol use, smoking, prior history of untoward ___ associated with medications. CURRENT MEDICATIONS: Include at the time when I examined the patient: 1. A combination of Percocet, ibuprofen and Dilaudid p.o. 4 mg 6 hours as needed and Dilaudid 1 mg every 3 hours as needed. 2. She is on psychotropic antidepressants including Wellbutrin, 3. Klonopin. 4. Trazodone. 5. Sertraline. States she has been on the psychotropes antidepressants for an extended long period of time and she has a history of underlying PTSD. She states that her pain is controlled to 100% when she has the IV Dilaudid. She does not like to use the p.o. Dilaudid, it makes her feel somewhat confused. The pa in that she is receiving does interfere with her personal life. She is unable to function as an outp atient well. There are no difficulties as far as her family relationships, social relationships. He r mood is not depressed, according to patient. Sleeping pattern is not involved. Overall, nathan crowell is reasonably well in spite of the fact that she does have these recurrent exacerbations. Once ag ain she has nausea, no vomiting associated with it. Denies constipation. She states that she does h ave itching associated with morphine and with any hydrocodone based opioid she becomes nauseous and does develop vomiting. She states that she is not overly sedated at this time. ASSESSMENT AND PLAN: There is no history of purposeful over-sedation. The patient does not appear i ntoxicated or have a past medical history of substance abuse. The patient is not drug seeking. Per my questioning, I do not believe she is using her pain medications for depression. Therefore, there are very mild side effects associated with outpatient medications or in-house. MEDICATIONS: Please refer to reconciliation sheets. ALLERGIES: 1. MORPHINE 2. HYDROCODONE BASE MEDICATIONS. MAJOR MEDICAL PROBLEMS IN THE PAST: In reviewing the patient's medical records, primarily per histor y of present illness and in reviewing Dr. Pineda Montenegro's notes. SURGICAL HISTORY: She is status post cystoscopy, bladder biopsy, bladder dilation, instillation of DMSO in [place] approximately 2 years ago. She hails from the [facility]. SOCIAL HISTORY: Nonsmoker, nondrinker. FAMILY HISTORY: Noncontributory towards this hospitalization, otherwise unremarkable for coronary h eart disease, stroke or cancer. REVIEW OF SYSTEMS: A 12-point review of systems unremarkable except which is as per history of pres ent illness. PHYSICAL EXAMINATION: GENERAL: Shows a well-nourished, well-developed pleasant female who is in no major acute distress. VITAL SIGNS: Blood pressure 126/79, pulse is 105 and regular, respirations of 18, temperature 97.4 degrees, 99% saturation on room air. HEENT: She is normocephalic and atraumatic. Anicteric, acyanotic. CHEST: Shows bilateral clear breath sounds throughout both lung calle. COR: S1, S2, without S3, S4, murmur, gallop, rub. Normal rate, normal rhythm. ABDOMEN: Grossly benign. NEUROLOGIC: She is oriented x3. Cranial nerves II through XII are grossly intact. Motor and senso ry findings grossly within normal limits. There are no new labs today. ASSESSMENT AND PLAN: Insofar as pain control, she has interstitial cystitis and a pain management sy ndrome associated with that. I do not believe the patient abuses these medications. She is on mult iple different centrally acting medications and I have spoken to her. We will continue with the Wel lbutrin and the Klonopin. However, I have discontinued the p.o. Dilaudid and we have negotiated for a different dose of 2 mg q.4 hours on the IV as needed. I made it clear that we are not going to a djust that dose and if so, she and I will have to speak. I have discontinued the Percocets, trazodo ne has been discontinued and Ambien have been discontinued. I will follow her closely while in-house. I appreciate this consult ation. Dictated By: ESTELA HAMILTON MD LP/NTS Conf#: [id number] DID#: [id number] CC: SPENCER MITCHELL MD;*EndCC*
[2016-12-31] MEDS ORDERED: POTASSIUM CHLORIDE 250 ML IVPB ONE (12:00)
[2016-12-31] MEDS ORDERED: DESMOPRESSIN 20 MCG in SOD CHLORIDE 0.9% 50 ML IVPB ONE (16:30)
--- NOTE | 2016-12-31 17:05 | CONS ---
Date/Time of Note Date/Time of Note DATE: 12/31/16 TIME: 17:05 Assessment/Plan Assessment/Plan Chief Complaint/Hosp Course The patient is a 26 year old woman with a history of von willebrand disease type 2 per patient (she is unclear on the subtype or her level of von willebrand factor antigen or ristocetin cofactor assay), diagnosed in 2011, as well as interstitial cystitis who presented with bladder spasm with plan to undergo cystoscopy, hydrodilatation of the bladder and instillation of DMSO by Dr. Montenegro today at 5:30 p.m. She underwent appendectomy in 11/2015 and tibia fracture repair 08/2016 with DDAVP prior to each procedure, without problems with hemostasis after each surgery. - von willebrand factor antigen, ristocetin co-factor assay, Factor VIII level and multimeric assay were sent yesterday and are pending at this time - ideally, I would like to have confirmation of her type of von willebrand disease and level of vWF antigen, though patient states that she received DDAVP prior to two other major surgeries with excess bleeding. - Patient should receive DDAVP 0.3 mcg/kg diluted in 50 ml of saline given IV over 30 minutes prior to procedure (starting 60 minutes prior to procedure with completion 30 minutes prior; max dose 20 mcg) with repeat dose day after surgery - Limit free water intake with DDAVP - Will repeat vWF Ag, RCoA and FVIII levels 1 hour and 6 hours after DDAVP to document response to DDAVP Problems: Consultation Date/Type/Reason Admit Date/Time December 30, 2016 at 12:20 Date of Consultation: December 31, 2016 Type of Consultation: Hematology Reason for Consultation History of von willebrand disease Hx of Present Illness The patient is a 26 year old woman with a history of von willebrand disease type 2 per patient, as well as interstitial cystitis who presented with bladder spasm with plan to undergo cystoscopy, hydrodilatation of the bladder and instillation of DMSO by Dr. Montenegro today at 5:30 p.m. The patient states that she has a history of type 2 vWD (she is unclear on the subtype or her level of von willebrand factor antigen or ristocetin cofactor assay), diagnosed in 2011 in [place], [place] while she was in college and treated by Dr. Wilson. She states that her mother has a history of von willebrand disease as well. The patient states that she has tested positive and negative on occasion for von willebrand disease, but that she does have bruises "all over" when her vWD is "active" approximately once per month, and sometimes "intense" bruising on rare occasion, but otherwise only has easy bruising. She states that if she starts to have a period, it will not stop, so she takes continuous control pills without the week off. Recently, she missed 1 day of her OCP and had a continuous bleeding x 1 month; she doubled up on her OCP and took transexemic acid about 5 days ago with resolution of her menses. Otherwise, no epistaxis, no rectal bleeding. She has had no joint bleeding except after fracture of her tibia. She underwent appendectomy in 11/2015 and tibia fracture repair 08/2016 with DDAVP prior to each procedure, without problems with hemostasis after each surgery. Constitutional: no complaints Eyes: no complaints ENT: no complaints Respiratory: no complaints Cardiovascular: no complaints Gastrointestinal: pain Genitourinary: other (BLADDER PAIN+) Musculoskeletal: no complaints Psychological: no complaints Past Medical History Interstitial cystitis; von willebrand disease Past Surgical History Past Surgical Hx: appendectomy, other (tibia fracture repair) Family History Significant Family History: other (mother with von willebrand disease) Social History Alcohol Use: occasionally ("social" drinker but not for a long time) Smoking Status: Never smoker Exam/Review of Systems Vital Signs Vitals Vital Signs Date Time Temp Pulse Resp B/P Pulse Ox O2 Delivery O2 Flow Rate FiO2 12/31/16 15:10 98.7 85 18 151/83 97 Room Air Intake and Output 12/30/16 12/30/16 12/31/16 15:00 23:00 07:00 Intake Total 1075 ml 750 ml Output Total 2000 ml Balance 1075 ml -1250 ml Exam Constitutional: alert, oriented Psych: no complaints Head: normocephalic Eyes: nl conjunctiva Neck: supple Respiratory: clear to auscultation Cardiovascular: regular rate and rhythm Gastrointestinal: non-tender, soft Musculoskeletal: nl extremities to inspection Neurological: PRIVATE INVESTIGATOR II-XII intact Results Result Diagram: 12/30/16212412/30/162124 Results 24 hrs Laboratory Tests Test 12/30/16 21:25 White Blood Count 6.5 Red Blood Count 4.19 L Hemoglobin 12.1 Hematocrit 36.8 L Mean Corpuscular Volume 87.8 Mean Corpuscular Hemoglobin 28.9 L Mean Corpuscular Hemoglobin Concent 32.9 Red Cell Distribution Width 13.0 Platelet Count 281 Mean Platelet Volume 9.1 Neutrophils % 68.4 Lymphocytes % 23.9 Monocytes % 6.0 Eosinophils % 1.2 Basophils % 0.3 Nucleated Red Blood Cells % 0.0 Neutrophils # 4.4 Lymphocytes # 1.6 Monocytes # 0.4 Eosinophils # 0.1 Basophils # 0.0 Nucleated Red Blood Cells # 0.0 Prothrombin Time 12.3 Prothrombin Time Ratio 1.0 INR International Normalized Ratio 0.91 Activated Partial Thromboplast Time 27.4 Sodium Level 136 Potassium Level 3.3 L Chloride Level 98 Carbon Dioxide Level 27 Anion Gap 14 Blood Urea Nitrogen 10 Creatinine 0.70 Glucose Level 92 Calcium Level 8.8 Total Bilirubin 0.1 L Direct Bilirubin 0.00 Indirect Bilirubin 0.1 Aspartate Amino Transf (AST/SGOT) 18 Alanine Aminotransferase (ALT/SGPT) 18 Alkaline Phosphatase 74 Total Protein 7.1 Albumin 3.9 Globulin 3.20 Albumin/Globulin Ratio 1.21 Medications Medications Current Medications Sodium Chloride (NS) 1,000 ml @ 50 mls/hr Q20H IV Last administered on 22:24; Admin Dose 50 MLS/HR; Start 12/28/16 at 19:54 Ondansetron HCl (Zofran Inj) 4 mg Q6H PRN IV NAUSEA AND/OR VOMITING Last administered on 12/31/16 05:48; Admin Dose 4 MG; Start 12/28/16 at 20:00 Docusate Sodium (Colace) 100 mg Q12H PRN PO CONSTIPATION Last administered on 21:58; Admin Dose 100 MG; Start 12/28/16 at 20:00 Magnesium Hydroxide (Milk Of Mag) 30 ml DAILY PRN PO CONSTIPATION; Start at 20:00 Bisacodyl (Dulcolax) 5 mg DAILY PRN PO CONSTIPATION; Start 12/28/16 at 20:00 Tolterodine Tartrate (Detrol La) 4 mg DAILY PO Last administered on 12/31/16 08 :26; Admin Dose 4 MG; Start 12/28/16 at 20:30 Bupropion HCl (Wellbutrin Xl) 300 mg DAILY PO Last administered on 12/31/16 08: 26; Admin Dose 300 MG; Start 12/29/16 at 09:00 Clonazepam (Klonopin) 1 mg BID PO Last administered on 12/31/16 08:26; Admin Dose 1 MG; Start 12/28/16 at 22:00 Pantoprazole (Protonix Tab) 40 mg DAILY@06 PO Last administered on 12/31/16 05: 40; Admin Dose 40 MG; Start 12/30/16 at 06:00 Clonidine (Catapres) 0.1 mg Q6H PRN PO for sbp >165; Start 12/30/16 at 18:00 Hydromorphone HCl (Dilaudid) 2 mg Q4H PRN IV PAIN Last administered on 15:18; Admin Dose 2 MG; Start 12/30/16 at 21:00 Sertraline HCl (Zoloft) 200 mg HS PO Last administered on 12/30/16 22:04; Admin Dose 200 MG; Start 12/30/16 at 22:00 Non-Formulary Medication 1 ea 1 ea OC KATIE ; Start 12/31/16 at 17:30; Stop 01/01 at 00:00 Desmopressin Acetate/Sodium Chloride (Ddavp/NS) 55 ml @ 110 mls/hr ONCE ONCE IVPB ; Start 01/01/17 at 09:00; Stop 01/01/17 at 09:29 TOSHIRA MD December 31, 2016 17:05
[2016-12-31] MEDS ORDERED: DIMETHYL SULFOXIDE BLADIN SCH (17:30)
[2016-12-31] MEDS ORDERED: MIDAZOLAM 1 MG/ML 2 ML INJ ONE ×2 (17:35→17:47)
--- NOTE | 2016-12-31 17:35 | HPN ---
Date/Time of Note Date/Time of Note DATE: 12/31/16 TIME: 17:34 Interval H&P Admission Note Pt. seen H&P reviewed: No system changes KELLIE REAL MD December 31, 2016 17:35
[2016-12-31] MEDS ORDERED: PROPOFOL 20 ML ONE (17:42)
[2016-12-31] MEDS ORDERED: LIDOCAINE 2% (SDV) 5 ML INJ ONE (17:42)
[2016-12-31] MEDS ORDERED: HYDROmorphONE 2 MG/ML SYG ONE (17:43)
[2016-12-31] MEDS ORDERED: ONDANSETRON 4 MG INJ ONE (18:14)
[2016-12-31] MEDS ORDERED: DEXAMETHASONE 4 MG/ML 1 ML INJ ONE (18:14)
[2016-12-31] MEDS ORDERED: FAMOTIDINE 20 MG INJ ONE (18:14)
[2016-12-31] MEDS ORDERED: MEPERIDINE 25 MG INJ IV PRN (19:00)
[2016-12-31] MEDS ORDERED: ONDANSETRON 4 MG INJ IV PRN (19:00)
[2016-12-31] MEDS ORDERED: PROCHLORPERAZINE 10 MG INJ IV PRN (19:00)
[2016-12-31] MEDS ORDERED: HYDROmorphONE (0.2 MG/ML) 10ML SYG IV PRN (19:00)
[2016-12-31] MEDS ORDERED: DIPHENHYDRAMINE 50 MG INJ IV PRN (19:00)
[2016-12-31] MEDS: SERTRALINE 100 MG TAB PO SCH (21:29)
[2016-12-31 21:37] LABS: ADD UMIC YES; URINE BILIRUBIN (Dip) NEGATIVE (NEGATIVE); URINE BLOOD (Dip) 1+ (NEGATIVE); URINE COLOR YELLOW (YELLOW); URINE GLUCOSE (Dip) NEGATIVE (NEGATIVE); URINE KETONES (Dip) NEGATIVE (NEGATIVE); URINE LEUKOCYTE ESTERASE (Dip) NEGATIVE (NEGATIVE); URINE NITRITE (Dip) NEGATIVE (NEGATIVE); URINE TOTAL PROTEIN (Dip) 1+ (NEGATIVE); URINE UROBILINOGEN (Dip) 0.2 E.U./dL (0.1-1.0)
[2016-12-31 21:48] LABS: BACTERIA,URINE MODERATE; TRANSITIONAL EPI CELLS,URINE MANY; URINE RBCS 0-2 /HPF (0)
[2016-12-31] MEDS: SOD CHLORIDE 0.9% 1,000 ML IV SCH (22:45)
[2016-12-31] MEDS ORDERED: HYDROmorphONE 0.2 MG/ML PCA IV SCH (23:00)
[2016-12-31] MEDS ORDERED: NALOXONE (0.4 MG/ML) INJ IV PRN (23:00)
--- NOTE | 2017-01-01 00:42 | OPR ---
DATE OF OPERATION: 12/31/2016 PREOPERATIVE DIAGNOSIS: History of interstitial cystitis and pelvic pain syndrome. POSTOPERATIVE DIAGNOSIS: History of interstitial cystitis and pelvic pain syndrome. PROCEDURE: Cystoscopy and hydrodilation of the bladder, and intravesical instillation of 50 mL of D MSO 50% solution. TECHNIQUE: The patient was brought to the operating room, and she was given general anesthesia. Ti meout was done. The patient was identified by her name, her date, and the procedure. Then, t he patient was given 2 grams of Ancef IV at the start of the procedure. She was then positioned in the lithotomy position, and the perineal and genital area was prepped and draped in the usual steril e manner. A #21 Mongolian cystoscope sheath was then introduced into the bladder. The bladder was nasir ined and urine was collected for culture and sensitivity. The volume inside the bladder was about 3 00 mL of clear yellow urine. Then, a cystoscopy was done with a 30-degree lens and 70-degree lens, and the bladder wall appeared to be normal. There was no evidence of any ulcerations, and there was no evidence of glomerulations, and there were no lesions inside the bladder. Once the bladder was inspected thoroughly, then I removed the scope and inserted a 16-Mongolian Alcantara catheter, inflated the balloon with 10 mL of sterile water, and then with gravity I distended the bladder up to 700 mL of normal saline; in fact, as the water goes in and through, I used a catheter tip syringe that I conne cted to the Alcantara catheter and used the length of the catheter height to let the water go into the b ladder by gravity, and that was going in easily. It kept going easy and there was no resistance fro m the bladder. Once it reached 700 mL, I stopped. When I did drain the bladder, I waited for 5 min utes with the bladder distended. I clamped the catheter and drained all the bladder into the pitche r, and the volume drained out was exactly 700 mL. Then, I repeated the cystoscopy, and I did not se e any bleeding, or any glomerulations or ulcerations in the vessels of the bladder. I did take pict ures of the bladder before the start of the procedure and after I did the dilation. Once the bladde r was emptied, then I repeated the cystoscopy and noticed if there were any ulcerations or glomerula tions, and there was none. Then, I removed the cystoscope, reinserted the Alcantara catheter, and the b ladder was emptied. Then, through the catheter tipped syringe, I did instill the 50 mL of a 50% nando ution of DMSO and clamped the catheter, and connected it to a drainage bag to allow the bladder to b e drained in about 15 minutes after the instillation. The anesthesiologist marked the time that the instillation was done, so in 15 minutes, the nurse will then clamp the catheter and drain the DMSO out of the bladder into the drainage bag. The patient tolerated the procedure well and was transfer red to recovery room in stable and satisfactory condition. Dictated By: KELLIE CELIS/AYAN Conf#: [id number] DID#: [id number]
[2017-01-01 02:30] VITALS: BP 134/79; PULSE 82; RESP 16
[2017-01-01] MEDS: SOD CHLORIDE 0.9% 1,000 ML IV SCH (03:08)
[2017-01-01] MEDS: PANTOPRAZOLE (EC) 40 MG TAB PO SCH (05:26)
[2017-01-01 05:42] LABS: ADD SCAN DIFF NO
[2017-01-01 05:46] LABS: BASOPHILS % 0.2 % (0.0-2.0); EOSINOPHILS % 0.2 % (0.0-7.0); HEMATOCRIT 33.8 % (37.0-47.0); LYMPHOCYTES # 0.7 10^3/ul (0.8-2.9); LYMPHOCYTES % 11.1 % (15.0-51.0); MEAN CORPUSCULAR HEMOGLOBIN 28.7 pg (29.0-33.0); MEAN CORPUSCULAR HGB CONC 32.5 g/dl (32.0-37.0); MEAN CORPUSCULAR VOLUME 88.3 fl (82.0-101.0); MEAN PLATELET VOLUME 9.1 fl (7.4-10.4); MONOCYTE # 0.3 10^3/ul (0.3-0.9); NEUTROPHIL # 5.1 10^3/ul (1.6-7.5); NEUTROPHILS % 83.2 % (39.0-77.0); PLATELET COUNT 279 10^3/UL (140-415); RED BLOOD COUNT 3.83 10^6/ul (4.20-5.40); WHITE BLOOD COUNT 6.1 10^3/ul (4.8-10.8)
[2017-01-01 06:09] LABS: POTASSIUM 3.9 mmol/L (3.5-5.1)
[2017-01-01 06:11] LABS: CREATININE 0.68 mg/dl (0.44-1.00)
[2017-01-01 06:12] LABS: CALCIUM 8.3 mg/dl (8.4-10.2)
[2017-01-01 07:52] VITALS: BP 137/83; RESP 18
[2017-01-01] MEDS: BUPROPION (XL) 150 MG TAB PO SCH (08:37)
[2017-01-01] MEDS: clonAZEPAM 0.5 MG TAB PO SCH ×2 (08:38→20:33)
[2017-01-01] MEDS ORDERED: DESMOPRESSIN 20 MCG in SOD CHLORIDE 0.9% 50 ML IVPB ONE (09:00)
[2017-01-01] MEDS ORDERED: HYDROmorphONE 0.2 MG/ML PCA IV SCH (12:00)
--- NOTE | 2017-01-01 12:21 | PN ---
DATE: 01/01/2017 SUBJECTIVE: The patient states she has had better days. She complains of pain. She has a history ? of interstitial cystitis. She just underwent a cystoscopy and hydrodilation of the bladder yesterd ay and intravesical instillation of DMSO. OBJECTIVE: VITAL SIGNS: Temperature is 97.8, pulse is 90, respirations 18, blood pressure 137/83. The Alcantara catheter is draining clear urine. LABORATORY DATA: Her CBC shows a white count of 6.1, hemoglobin 11.0, hematocrit 33.8, BUN is 12, c reatinine 0.68. Electrolytes are normal. Urine culture that was collected yesterday in the operati ng room, no growth after 24 hours. A prior urine culture was also negative. IMPRESSION: At the present the findings during the cystoscopy and the hydrodilation of the bladder d id not support much the diagnosis of interstitial cystitis, as the bladder capacity went up to 700 m L and I did take pictures of the bladder before the hydrodilation and after the hydrodilation and th ere were no vessels that broke to suggest a glomerule lesion and there was no ulceration in the blad myranda, and usually a interstitial cystitis bladder capacity is, 200, 300 or 400, but not in the 700s m L. The patient has been taking her pain medications regularly, and the finding in the bladder does not support having that much pain; however, I will leave the pain management up to Dr. Sylvester. Ur ologically I think tomorrow or the day after we shall take out the Alcantara catheter and have her urina te on her own. Dictated By: KELLIE CELIS/AYAN Conf#: [id number] DID#: [id number]
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
--- NOTE | 2017-01-01 16:25 | PN ---
DATE: 01/01/2017 SUBJECTIVE: Cinthia is a 26-year-old female with a history of interstitial cystitis and a lso von Willebrand disease. In addition, she has history of menorrhagia. She was admitted for cyst oscopy, which she had yesterday after DDAVP. She has no significant bleeding. She states that she had vaginal bleeding for a month, which stopped a few days ago. PAST MEDICAL HISTORY AND REVIEW OF SYSTEMS: Please see the H and P. PHYSICAL EXAMINATION: GENERAL: Shows moderately built female who is slightly lethargic from pain medication. VITAL SIGNS: She is afebrile. ENT: Normal. HEART: Normal. LUNGS: Normal. ABDOMEN: Soft. No masses. GENITOURINARY: She has a Alcantara catheter which is draining faintly bloody urine. EXTREMITIES: Showed no edema, clubbing or cyanosis. CENTRAL NERVOUS SYSTEM: The patient is slightly lethargic. Otherwise, unremarkable. LABORATORY DATA: Her CMP and CBC are unremarkable except for hemoglobin 11 with MCV 88. IMPRESSION: 1. History of mild von Willebrand disease with a normal PT and PTT now. Further workup pending. 2. Interstitial cystitis, recurrent, status post cystoscopy. 3. History of menorrhagia. PLAN: This patient has normal PT and PTT. Her von Willebrand disease is probably very mild. She h as history of menorrhagia and is slightly anemic. I will get a serum ferritin. We will monitor her CBC. Dictated By: GREG GOFF MD PC/NTS Conf#: [id number] DID#: [id number]
[2017-01-01 20:06] VITALS: BP 146/86; RESP 19
[2017-01-01] MEDS: SERTRALINE 100 MG TAB PO SCH (20:34)
[2017-01-01] MEDS: HYDROmorphONE 0.2 MG/ML PCA IV SCH (22:49)
[2017-01-02] MEDS: PANTOPRAZOLE (EC) 40 MG TAB PO SCH (05:44)
[2017-01-02 05:55] LABS: ADD SCAN DIFF NO
[2017-01-02 05:56] LABS: BASOPHILS % 0.4 % (0.0-2.0); EOSINOPHILS # 0.1 10^3/ul (0.0-0.5); EOSINOPHILS % 1.9 % (0.0-7.0); HEMATOCRIT 32.5 % (37.0-47.0); HEMOGLOBIN 10.7 g/dl (12.0-16.0); LYMPHOCYTES # 2.1 10^3/ul (0.8-2.9); LYMPHOCYTES % 38.8 % (15.0-51.0); MEAN CORPUSCULAR HEMOGLOBIN 29.2 pg (29.0-33.0); MEAN CORPUSCULAR HGB CONC 32.9 g/dl (32.0-37.0); MEAN CORPUSCULAR VOLUME 88.6 fl (82.0-101.0); MEAN PLATELET VOLUME 9.3 fl (7.4-10.4); MONOCYTE # 0.3 10^3/ul (0.3-0.9); MONOCYTES % 6.3 % (0.0-11.0); NEUTROPHIL # 2.8 10^3/ul (1.6-7.5); NEUTROPHILS % 52.2 % (39.0-77.0); PLATELET COUNT 259 10^3/UL (140-415); RED BLOOD COUNT 3.67 10^6/ul (4.20-5.40); RED CELL DISTRIBUTION WIDTH 13.2 % (11.5-14.5); WHITE BLOOD COUNT 5.4 10^3/ul (4.8-10.8)
[2017-01-02 07:04] LABS: CALCIUM 8.2 mg/dl (8.4-10.2); CREATININE 0.63 mg/dl (0.44-1.00); POTASSIUM 3.7 mmol/L (3.5-5.1)
[2017-01-02 07:33] VITALS: BP 163/112; RESP 18
[2017-01-02] MEDS: HYDROmorphONE 0.2 MG/ML PCA IV SCH ×2 (08:32→17:03)
[2017-01-02] MEDS: clonAZEPAM 0.5 MG TAB PO SCH ×2 (08:35→21:11)
[2017-01-02] MEDS: BUPROPION (XL) 150 MG TAB PO SCH (08:35)
[2017-01-02] MEDS: CARISOPRODOL 350 MG TAB PO PRN (10:31)
[2017-01-02 12:00] VITALS: BP 175/124; PULSE 104; RESP 18
[2017-01-02 13:00] VITALS: BP 150/100; PULSE 100
[2017-01-02] MEDS: TOLTERODINE (SR) 4 MG CAP PO SCH (13:30)
[2017-01-02] MEDS: ONDANSETRON 4 MG INJ IV PRN (13:45)
[2017-01-02 17:00] VITALS: BP 145/89; PULSE 99
--- NOTE | 2017-01-02 17:03 | PDOCDIS ---
Discharge Instructions CONDITION Patient Condition: Stable HOME CARE INSTRUCTIONS: Special Diet: Regular ACTIVITY: Activity Restrictions: Slowly Increase Activity FOLLOW UP/APPOINTMENTS Appointments f/u own pcp 1 wk see [facility] urologist 1 wk DENVER MITCHELL MD January 02, 2017 17:03
[2017-01-02] MEDS ORDERED: CARI350T29 PO (17:05)
[2017-01-02] MEDS ORDERED: ONDA4TAB8 PO (17:05)
[2017-01-02] MEDS ORDERED: BISA5TAB6 PO (17:05)
[2017-01-02] MEDS ORDERED: TOLT4CAP PO (17:05)
[2017-01-02] MEDS ORDERED: DOCU-216 PO (17:05)
[2017-01-02] MEDS: SOD CHLORIDE 0.9% 1,000 ML IV SCH (17:47)
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
[2017-01-02 20:22] VITALS: BP 144/108; RESP 16
[2017-01-02] MEDS: PHENAZOPYRIDINE 100 MG TAB PO SCH (21:10)
[2017-01-02] MEDS: SERTRALINE 100 MG TAB PO SCH (21:12)
[2017-01-03] MEDS: HYDROmorphONE 0.2 MG/ML PCA IV SCH ×3 (03:08→23:04)
--- NOTE | 2017-01-03 03:14 | PN ---
DATE: 01/02/2017 SUBJECTIVE: The patient complaining of spasms, and she is stating that she is in a lot of pain. Th e patient is also stating that the catheter is bothering her. Initially she wanted the catheter to be kept in. Now she wanted the catheter removed, so we had removed the catheter early. OBJECTIVE: VITAL SIGNS: Temperature 98.6, pulse is 126, respirations 16, blood pressure 144/108. LABORATORY DATA: CBC shows a white count of 5.4, hemoglobin 10.7, hematocrit 32.5. BUN is 8, creat inine 0.63, sodium 139, potassium 3.7, chloride 105, CO2 28. Urine culture from the time of surgery showed no growth after 48 hours. IMPRESSION: The patient with pelvic pain syndrome. On cystoscopy, I did not see any ulceration christopher t suggested any interstitial cystitis. I did not also see any glomerulation to also suggestive the same, and the bladder capacity was about 700 mL, which is too high for somebody who has interstitial cystitis. I did explain that to the patient, but again, she is convinced that over the years she h as had interstitial cystitis. In any case, at the present, we will cover her with pain medications as per the pain management doctor. Urologically, I told her basically there is nothing else I could do at this present time. Then when she is discharged, she could also see the urologist that she wa s initially referred to and even she could seek other opinions and diagnostic testing. Dictated By: KELLIE CELIS/AYAN Conf#: [id number] DID#: [id number]
[2017-01-03] MEDS: PANTOPRAZOLE (EC) 40 MG TAB PO SCH (06:03)
[2017-01-03 07:34] VITALS: BP 134/92; RESP 20
[2017-01-03] MEDS: TOLTERODINE (SR) 4 MG CAP PO SCH (08:55)
[2017-01-03] MEDS: PHENAZOPYRIDINE 100 MG TAB PO SCH ×3 (08:56→21:38)
[2017-01-03] MEDS: BUPROPION (XL) 150 MG TAB PO SCH (08:56)
[2017-01-03] MEDS: clonAZEPAM 0.5 MG TAB PO SCH ×2 (09:00→21:38)
[2017-01-03 12:00] VITALS: BP 134/92; PULSE 89; RESP 18
[2017-01-03] MEDS: CARISOPRODOL 350 MG TAB PO PRN (13:29)
[2017-01-03 14:40] VITALS: BP 142/93; PULSE 120; RESP 22
[2017-01-03] MEDS: SOD CHLORIDE 0.9% 1,000 ML IV SCH (14:43)
[2017-01-03] MEDS: ONDANSETRON 4 MG INJ IV PRN ×2 (14:53→21:05)
[2017-01-03 17:00] VITALS: BP 150/99; PULSE 100; RESP 18
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
[2017-01-03] MEDS ORDERED: HYDROmorphONE 1 MG/ML SYG IV PRN (19:00)
[2017-01-03 21:00] VITALS: BP 159/116; PULSE 100; RESP 19
[2017-01-03] MEDS: SERTRALINE 100 MG TAB PO SCH (21:38)
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
[2017-01-04] MEDS: PANTOPRAZOLE (EC) 40 MG TAB PO SCH ×2 (06:00→07:43)
[2017-01-04 07:38] VITALS: BP 147/96; RESP 20
[2017-01-04 10:03] LABS: ADD SCAN DIFF NO
[2017-01-04 10:10] LABS: BASOPHILS % 0.4 % (0.0-2.0); EOSINOPHILS # 0.1 10^3/ul (0.0-0.5); EOSINOPHILS % 1.7 % (0.0-7.0); HEMATOCRIT 33.3 % (37.0-47.0); LYMPHOCYTES # 1.7 10^3/ul (0.8-2.9); LYMPHOCYTES % 32.4 % (15.0-51.0); MEAN CORPUSCULAR HEMOGLOBIN 28.9 pg (29.0-33.0); MEAN CORPUSCULAR VOLUME 87.6 fl (82.0-101.0); MEAN PLATELET VOLUME 8.9 fl (7.4-10.4); MONOCYTE # 0.3 10^3/ul (0.3-0.9); MONOCYTES % 5.8 % (0.0-11.0); NEUTROPHIL # 3.1 10^3/ul (1.6-7.5); NEUTROPHILS % 59.5 % (39.0-77.0); PLATELET COUNT 264 10^3/UL (140-415); WHITE BLOOD COUNT 5.2 10^3/ul (4.8-10.8)
[2017-01-04] MEDS: PHENAZOPYRIDINE 100 MG TAB PO SCH ×3 (10:30→21:21)
[2017-01-04] MEDS: TOLTERODINE (SR) 4 MG CAP PO SCH (10:30)
[2017-01-04] MEDS: BUPROPION (XL) 150 MG TAB PO SCH (10:30)
[2017-01-04] MEDS: clonAZEPAM 0.5 MG TAB PO SCH ×2 (10:35→21:21)
[2017-01-04] MEDS: SOD CHLORIDE 0.9% 1,000 ML IV SCH (10:35)
[2017-01-04 10:38] LABS: IRON 27 ug/dl (35-150)
[2017-01-04 10:41] LABS: ALBUMIN 3.5 g/dl (3.3-4.9); ALBUMIN/GLOBULIN RATIO 1.25; BILIRUBIN,INDIRECT 0.1 mg/dl (0-1.1); BILIRUBIN,TOTAL 0.1 mg/dl (0.2-1.3); CALCIUM 8.5 mg/dl (8.4-10.2); CREATININE 1.09 mg/dl (0.44-1.00); POTASSIUM 3.6 mmol/L (3.5-5.1); TOTAL PROTEIN 6.3 g/dl (6.1-8.1)
[2017-01-04 10:47] LABS: TOTAL IRON BINDING CAPACITY 375 ug/dl (241-421)
--- NOTE | 2017-01-04 11:04 | PN ---
DATE: 01/04/2017 SUBJECTIVE: I had a long conversation with Ms. Franco this morning, she still complains of severe pelvic pain. She is crying. She states that she needs to have her pain control medications for at least another 2 days. Her complaints are that she is still having discomfort in her pelvic area wit hout nausea, vomiting, chest pain, shortness of breath, cough. States that she still has a gnawing aching pain, which is throbbing and she describes it as severe discomfort, 06/07, states that her IV medications are the only medications that alleviate her pain at this point. Denies pruritus, menta l cloudiness, sweating, fatigue, drowsiness. OBJECTIVE: VITAL SIGNS: Blood pressure 147/96, pulse of 91 and regular, respirations of 20, temperature of 98. 4 degrees, 97% saturation on 2 liters. HEENT: She is normocephalic and atraumatic. Anicteric, acyanotic. NEUROLOGICAL: She is oriented x3. Cranial nerves II through XII are grossly intact. Motor and sen michelle findings are grossly within normal limits. CORONARY: S1, S2, without S3, S4, murmur, gallop, rub. Normal rate, normal rhythm. CHEST: Normal breath sounds throughout both lung calle without rales, rhonchi, wheezing, or rubs. LABORATORY DATA: None today. ASSESSMENT AND PLAN: Pelvic pain syndrome. I have had an extensive conversation with her and expla ined that she needs to be seen by a pain management physician outside the hospital, possibly being r eferred to a tertiary care center. She definitely needs to be seen by a multi-speciality pain manag ement group, and I have referred her to the [facility] or the manufacturing engineer paint referred by [facility] community, Dr. Nash Jacques. I do not believe there is purposeful ov ersedation, but I do believe that she has negative mood changes associated with her pain medication tolerance. She is extremely labile insofar as her emotional condition and is bargaining for continu ing with IV pain control medications at this time. I have explained to her that we cannot do this. I will switch her over to p.r.n. doses of IV Dilaudid and oral Percocet at this time with anticipat ion that she needs to be seen by an outpatient person and have her pain control medications adjusted at that time. She states that she needs to have the pain control medications for at least 3 days a fter her surgical intervention. I did explain to her that I did speak to other consultants who state d that her study was unremarkable, but I assured her I still believe that she does have pelvic pain syndrome, but the use of superintendent marine oil terminal opioids is not the best course of treatment. She does insist on certain medications, including the Percocet and IV Dilaudid. RECOMMENDATIONS: At this point, based upon her severity of discomfort, but nonobjective findings t o the above, I will start lowering her doses and tapering her off the QA CONSULTANT pump today. I have made it very clear to her that I am in agreement that she does have pain, but continuing on high dose of analgesics intravenously is not indicated at this time, nor is it benign treatment. We will contin ue to follow her and support her. Dictated By: ESTELA HAMILTON MD, LP/AYAN Conf#: [id number] DID#: [id number]
[2017-01-04] MEDS: ONDANSETRON 4 MG INJ IV PRN (11:30)
[2017-01-04] MEDS: HYDROmorphONE 2 MG/ML SYG IV PRN ×3 (12:28→23:52)
--- NOTE | 2017-01-04 13:08 | CONS ---
Date/Time of Note Date/Time of Note DATE: 01/04/17 TIME: 13:05 Assessment/Plan Assessment/Plan Chief Complaint/Hosp Course The patient is a 26 year old woman with a history of von willebrand disease type 2 per patient (she is unclear on the subtype or her level of von willebrand factor antigen or ristocetin cofactor assay), diagnosed in 2011, as well as interstitial cystitis who presented with bladder spasm with plan to undergo cystoscopy, hydrodilatation of the bladder and instillation of DMSO by Dr. Montenegro today at 5:30 p.m. She underwent appendectomy in 11/2015 and tibia fracture repair 08/2016 with DDAVP prior to each procedure, without problems with hemostasis after each surgery. - baseline von willebrand factor antigen, ristocetin co-factor assay, Factor VIII level and multimeric assay were sent and are pending at this time. Factor VIII level normal at 110 (normal 50-180%). - ideally, I would like to have confirmation of her type of von willebrand disease and level of vWF antigen, though patient states that she received DDAVP prior to two other major surgeries with excess bleeding. - Patient received DDAVP 0.3 mcg/kg diluted in 50 ml of saline given IV over 30 minutes prior to procedure (starting 60 minutes prior to procedure with completion 30 minutes prior; max dose 20 mcg) with repeat dose day after surgery , without excess bleeding - Limit free water intake with DDAVP - Repeat vWF Ag, RCoA and FVIII levels 1 hour and 6 hours after DDAVP to document response to DDAVP (pending) - Patient slightly anemic, Hgb stable at 11.0, iron panel shows iron 27, TIBC 375, %sat 7, ferritin 7.6 consistent with iron deficiency anemia. Will give IV iron while in house then discharge on PO iron. - appreciate Dr. Sylvester's assistance with patient's pain management - patient will call my office to follow up as an outpatient Problems: Consultation Date/Type/Reason Admit Date/Time December 30, 2016 at 12:20 Initial Consult Date 12/31/16 Type of Consultation: Hematology 24 HR Interval Summary Free Text/Dictation Patient still has pain today and is "wiped out" from yesterday. Exam/Review of Systems Vital Signs Vitals Vital Signs Date Time Temp Pulse Resp B/P Pulse Ox O2 Delivery O2 Flow Rate FiO2 01/04/17 07:38 98.4 91 20 147/96 97 01/03/17 21:00 Room Air 01/01/17 02:30 2.0 Intake and Output 01/03/17 01/03/17 01/04/17 15:00 23:00 07:00 Intake Total 950 ml 1300 ml 1300 ml Output Total 3600 ml 2350 ml Balance 950 ml -2300 ml -1050 ml Exam Constitutional: alert, oriented Psych: no complaints Head: normocephalic Eyes: nl conjunctiva Neck: supple Respiratory: clear to auscultation Cardiovascular: regular rate and rhythm Gastrointestinal: non-tender, soft Musculoskeletal: nl extremities to inspection 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 Results Result Diagram: 01/04/1744 01/04/17 0944 Results 24 hrs Laboratory Tests Test 01/03/17 19:20 01/04/17 07:45 01/04/17 09:44 Ferritin 7.6 Lab Scanned Report REFERENCE LAB White Blood Count 5.2 Red Blood Count 3.80 L Hemoglobin 11.0 L Hematocrit 33.3 L Mean Corpuscular Volume 87.6 Mean Corpuscular Hemoglobin 28.9 L Mean Corpuscular Hemoglobin Concent 33.0 Red Cell Distribution Width 13.0 Platelet Count 264 Mean Platelet Volume 8.9 Neutrophils % 59.5 Lymphocytes % 32.4 Monocytes % 5.8 Eosinophils % 1.7 Basophils % 0.4 Nucleated Red Blood Cells % 0.0 Neutrophils # 3.1 Lymphocytes # 1.7 Monocytes # 0.3 Eosinophils # 0.1 Basophils # 0.0 Nucleated Red Blood Cells # 0.0 Sodium Level 134 L Potassium Level 3.6 Chloride Level 100 Carbon Dioxide Level 28 Anion Gap 10 Blood Urea Nitrogen 14 Creatinine 1.09 H Glucose Level 131 Calcium Level 8.5 Iron Level 27 L Total Iron Binding Capacity 375 Percent Iron Saturation 7 L Total Bilirubin 0.1 L Direct Bilirubin 0.00 Indirect Bilirubin 0.1 Aspartate Amino Transf (AST/SGOT) 15 Alanine Aminotransferase (ALT/SGPT) 19 Alkaline Phosphatase 76 Total Protein 6.3 Albumin 3.5 Globulin 2.80 Albumin/Globulin Ratio 1.25 Medications Medications Current Medications Sodium Chloride (NS) 1,000 ml @ 50 mls/hr Q20H IV Last administered on t 10:35; Admin Dose 50 MLS/HR; Start 12/28/16 at 19:54 Ondansetron HCl (Zofran Inj) 4 mg Q6H PRN IV NAUSEA AND/OR VOMITING Last administered on 01/04/17 11:30; Admin Dose 4 MG; Start 12/28/16 at 20:00 Docusate Sodium (Colace) 100 mg Q12H PRN PO CONSTIPATION Last administered on 21:58; Admin Dose 100 MG; Start 12/28/16 at 20:00 Magnesium Hydroxide (Milk Of Mag) 30 ml DAILY PRN PO CONSTIPATION; Start at 20:00 Bisacodyl (Dulcolax) 5 mg DAILY PRN PO CONSTIPATION; Start 12/28/16 at 20:00 Bupropion HCl (Wellbutrin Xl) 300 mg DAILY PO Last administered on 01/04/17 10: 30; Admin Dose 300 MG; Start 12/29/16 at 09:00 Clonazepam (Klonopin) 1 mg BID PO Last administered on 01/04/17 10:35; Admin Dose 1 MG; Start 12/28/16 at 22:00 Pantoprazole (Protonix Tab) 40 mg DAILY@06 PO Last administered on 01/04/17 07: 43; Admin Dose 40 MG; Start 12/30/16 at 06:00 Clonidine (Catapres) 0.1 mg Q6H PRN PO for sbp >165 Last administered on 13:38; Admin Dose 0.1 MG; Start 12/30/16 at 18:00 Sertraline HCl (Zoloft) 200 mg HS PO Last administered on 01/03/17 21:38; Admin Dose 200 MG; Start 12/30/16 at 22:00 Naloxone HCl (Narcan) 0.2 mg Q2M PRN IV RR 8 BREATHS/MIN OR LESS; Start at 23:00 Carisoprodol (Soma) 350 mg Q8H PRN PO bladder spasms Last administered on 13:29; Admin Dose 350 MG; Start 01/01/17 at 16:00 Tolterodine Tartrate (Detrol La) 4 mg DAILY PO Last administered on 01/04/17 10 :30; Admin Dose 4 MG; Start 01/02/17 at 13:30 Phenazopyridine HCl (Pyridium) 100 mg TID PO Last administered on 01/04/17 10: 30; Admin Dose 100 MG; Start 01/02/17 at 20:00 Hydromorphone HCl (Dilaudid) 1 mg ONCE PRN IV SEVERE PAIN LEVEL 7-10 Last administered on 01/04/17 00:20; Admin Dose 1 MG; Start 01/03/17 at 19:00 Oxycodone/ Acetaminophen (Percocet (5/ 325)) 2 tab Q4H PRN PO PAIN; Start at 12:30 Hydromorphone HCl (Dilaudid) 2 mg Q6H PRN IV PAIN Last administered on 12:28; Admin Dose 2 MG; Start 01/04/17 at 12:30 SHIRA PETERSEN MD January 04, 2017 13:08
[2017-01-04] MEDS: OXYCODONE/ACETAMINOPHEN (5/325) TAB PO PRN ×2 (15:49→21:21)
[2017-01-04] MEDS ORDERED: SOD FERRIC GLUC COMPLX 125 MG in SOD CHLORIDE 0.9% 100 ML IVPB SCH (18:30)
[2017-01-04 20:59] VITALS: BP 155/95; RESP 16
[2017-01-04] MEDS: SERTRALINE 100 MG TAB PO SCH (21:21)
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
[2017-01-05] MEDS: OXYCODONE/ACETAMINOPHEN (5/325) TAB PO PRN ×2 (02:11→08:27)
[2017-01-05] MEDS: CARISOPRODOL 350 MG TAB PO PRN (02:19)
[2017-01-05] MEDS: PANTOPRAZOLE (EC) 40 MG TAB PO SCH (06:19)
[2017-01-05] MEDS: HYDROmorphONE 2 MG/ML SYG IV PRN ×2 (06:27→12:41)
[2017-01-05] MEDS: SOD CHLORIDE 0.9% 1,000 ML IV SCH (07:54)
[2017-01-05 07:58] VITALS: BP 161/92; RESP 16
[2017-01-05] MEDS: PHENAZOPYRIDINE 100 MG TAB PO SCH ×2 (08:27→12:37)
[2017-01-05] MEDS: BUPROPION (XL) 150 MG TAB PO SCH (08:28)
[2017-01-05] MEDS: TOLTERODINE (SR) 4 MG CAP PO SCH (08:28)
[2017-01-05] MEDS: clonAZEPAM 0.5 MG TAB PO SCH (08:28)
[2017-01-05] MEDS ORDERED: SERT-165 PO (12:00)
[2017-01-05] MEDS ORDERED: CLON0.5T4 PO (12:00)
[2017-01-05] MEDS ORDERED: PHEN-612 PO (12:00)
[2017-01-05] MEDS ORDERED: BUPR150T6 PO (12:00)
--- NOTE | 2017-01-05 12:01 | CONS ---
Date/Time of Note Date/Time of Note DATE: 01/05/17 TIME: 11:58 Assessment/Plan Assessment/Plan Chief Complaint/Hosp Course The patient is a 26 year old woman with a history of von willebrand disease type 2 per patient (she is unclear on the subtype or her level of von willebrand factor antigen or ristocetin cofactor assay), diagnosed in 2011, as well as interstitial cystitis who presented with bladder spasm with plan to undergo cystoscopy, hydrodilatation of the bladder and instillation of DMSO by Dr. Montenegro today at 5:30 p.m. She underwent appendectomy in 11/2015 and tibia fracture repair 08/2016 with DDAVP prior to each procedure, without problems with hemostasis after each surgery. - baseline von willebrand factor antigen, ristocetin co-factor assay, Factor VIII level and multimeric assay were sent and are pending at this time. Factor VIII level normal at 110 (normal 50-180%). - ideally, I would like to have confirmation of her type of von willebrand disease and level of vWF antigen, though patient states that she received DDAVP prior to two other major surgeries with excess bleeding. - Patient received DDAVP 0.3 mcg/kg diluted in 50 ml of saline given IV over 30 minutes prior to procedure (starting 60 minutes prior to procedure with completion 30 minutes prior; max dose 20 mcg) with repeat dose day after surgery , without excess bleeding - Limit free water intake with DDAVP - Repeat vWF Ag, RCoA and FVIII levels 1 hour and 6 hours after DDAVP to document response to DDAVP (pending) - Patient slightly anemic, Hgb stable at 11.0, iron panel shows iron 27, TIBC 375, %sat 7, ferritin 7.6 consistent with iron deficiency anemia. Will give IV iron while in house then discharge on PO iron. Tolerating IV iron thus far. - appreciate Dr. Sylvester's assistance with patient's pain management - patient will call my office to follow up as an outpatient Problems: Consultation Date/Type/Reason Admit Date/Time December 30, 2016 at 12:20 Initial Consult Date 12/31/16 Type of Consultation: Hematology 24 HR Interval Summary Free Text/Dictation Patient denies bleeding. Tolerated IV iron. Has decreased pain today. 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 Results Result Diagram: 01/04/1794301/04/17943 Medications Medications Current Medications Sodium Chloride (NS) 1,000 ml @ 50 mls/hr Q20H IV Last administered on 10:35; Admin Dose 50 MLS/HR; Start 12/28/16 at 19:54 Ondansetron HCl (Zofran Inj) 4 mg Q6H PRN IV NAUSEA AND/OR VOMITING Last administered on 01/04/17 11:30; Admin Dose 4 MG; Start 12/28/16 at 20:00 Docusate Sodium (Colace) 100 mg Q12H PRN PO CONSTIPATION Last administered on 21:58; Admin Dose 100 MG; Start 12/28/16 at 20:00 Magnesium Hydroxide (Milk Of Mag) 30 ml DAILY PRN PO CONSTIPATION Last administered on 01/05/17 06:19; Admin Dose 30 ML; Start 12/28/16 at 20:00 Bisacodyl (Dulcolax) 5 mg DAILY PRN PO CONSTIPATION; Start 12/28/16 at 20:00 Bupropion HCl (Wellbutrin Xl) 300 mg DAILY PO Last administered on 01/05/17 08 :28; Admin Dose 300 MG; Start 12/29/16 at 09:00 Clonazepam (Klonopin) 1 mg BID PO Last administered on 01/05/17 08:28; Admin Dose 1 MG; Start 12/28/16 at 22:00 Pantoprazole (Protonix Tab) 40 mg DAILY@06 PO Last administered on 01/05/17 06 :19; Admin Dose 40 MG; Start 12/30/16 at 06:00 Clonidine (Catapres) 0.1 mg Q6H PRN PO for sbp >165 Last administered on 13:38; Admin Dose 0.1 MG; Start 12/30/16 at 18:00 Sertraline HCl (Zoloft) 200 mg HS PO Last administered on 01/04/17 21:21; Admin Dose 200 MG; Start 12/30/16 at 22:00 Naloxone HCl (Narcan) 0.2 mg Q2M PRN IV RR 8 BREATHS/MIN OR LESS; Start at 23:00 Carisoprodol (Soma) 350 mg Q8H PRN PO bladder spasms Last administered on 02:19; Admin Dose 350 MG; Start 01/01/17 at 16:00 Tolterodine Tartrate (Detrol La) 4 mg DAILY PO Last administered on 01/05/17 08:28; Admin Dose 4 MG; Start 01/02/17 at 13:30 Phenazopyridine HCl (Pyridium) 100 mg TID PO Last administered on 01/05/17 08: 27; Admin Dose 100 MG; Start 01/02/17 at 20:00 Hydromorphone HCl (Dilaudid) 1 mg ONCE PRN IV SEVERE PAIN LEVEL 7-10 Last administered on 01/04/17 00:20; Admin Dose 1 MG; Start 01/03/17 at 19:00 Oxycodone/ Acetaminophen (Percocet (5/ 325)) 2 tab Q4H PRN PO PAIN Last administered on 01/05/17 08:27; Admin Dose 2 TAB; Start 01/04/17 at 12:30 Hydromorphone HCl 2 mg 2 mg Q6H PRN IV PAIN Last administered on 01/05/17 06: 27; Admin Dose 2 MG; Start 01/04/17 at 12:30 Ferric Sodium Gluconate Complex/ Sodium Chloride (Ferrlecit/NS) 110 ml @ 110 mls/hr Q24H IVPB Last administered on 01/04/17 20:04; Admin Dose 110 MLS/HR; Start 01/04/17 at 18:30; Stop 01/08/17 at 19:29 SHIRA PETERSEN MD January 05, 2017 12:01
--- NOTE | 2017-01-06 13:40 | QN ---
Documentation Comment [id number] DENVER MITCHELL MD January 06, 2017 13:40
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
== END 2017-01-05 17:35 | disposition home or self-care (01) | DRG 654 ==
LOC: E/R 12:00 → MS2 16:47 → OBSVTOIN 12-30 12:20 → MS2 01-03 22:30
PROVIDERS: ADMIT Internal Medicine Nephrology; ATTEND Internal Medicine Nephrology
PROC: 3E0K8GC Introduction of Other Therapeutic Substance into Genitourinary Tract, Via Natural or Artificial Opening Endoscopic (ICD-10-PCS; 2016-12-31)
PROC: 0T7B8ZZ Dilation of Bladder, Via Natural or Artificial Opening Endoscopic (ICD-10-PCS; principal; 2016-12-31 17:30)
DX: N30.10 Interstitial cystitis (chronic) without hematuria (principal); D68.0 Von Willebrand disease; R10.2 Pelvic and perineal pain; R00.0 Tachycardia, unspecified; F43.10 Post-traumatic stress disorder, unspecified; D50.9 Iron deficiency anemia, unspecified
CPT/HCPCS: 36415; 71010; 76775; 80048; 80053; 81001; 81003; 82728; 83540; 84703; 85025; 85240; 85610; 85730; 86850; 86900; 86901; 87040; 87081; 87086; 93005; 96374; 96375; 96376; C9113; G0378; J0690; J1100; J1170; J2250; J2405; J2597; J2765; J2916; J3480; J7030

== ENCOUNTER 2017-01-15 00:52 | Inpatient (IN) | payer OTHER ==
[2017-01-15] VITALS (11 sets, daily range): BP systolic 115–152; BP diastolic 82–98; PULSE 106–124; RESP 18–20; Ht 157.5 cm; Wt 70.0 kg
[~2017-01-15] VITALS: Ht 157.5 cm; Wt 70.0 kg
[~2017-01-15 00:52] MED LIST changes: +BISA5TAB6 PO; +BUPR150T6 PO; +BUPR300T48 PO; +CARI350T29 PO; +CLON-412 PO; +CLON0.5T4 PO; +DOCU-216 PO; -HYDR-906 PO; -IBUP-1542 PO; +METH54TA4 PO; -ONDA4TAB14 PO; +ONDA4TAB8 PO; +PHEN-612 PO; +SERT-165 PO; +SERT100T PO; +TOLT4CAP PO; +TRAZ100T15 PO
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
[2017-01-15] MEDS ORDERED: ONDANSETRON 4 MG INJ IV STA (01:21)
[2017-01-15] MEDS ORDERED: SOD CHLORIDE 0.9% 1,000 ML IV STA (01:21)
[2017-01-15] MEDS ORDERED: HYDROmorphONE 1 MG/ML SYG IV STA ×3 (01:29→03:48)
[2017-01-15] MEDS ORDERED: clonAZEPAM 0.5 MG TAB PO ONE (01:30)
[2017-01-15 01:35] LABS: ADD SCAN DIFF NO
[2017-01-15 01:42] LABS: BASOPHILS % 0.3 % (0.0-2.0); EOSINOPHILS % 0.1 % (0.0-7.0); HEMATOCRIT 37.9 % (37.0-47.0); HEMOGLOBIN 12.3 g/dl (12.0-16.0); LYMPHOCYTES % 20.4 % (15.0-51.0); MEAN CORPUSCULAR HEMOGLOBIN 28.9 pg (29.0-33.0); MEAN CORPUSCULAR HGB CONC 32.5 g/dl (32.0-37.0); MONOCYTE # 0.4 10^3/ul (0.3-0.9); MONOCYTES % 4.3 % (0.0-11.0); NEUTROPHIL # 7.4 10^3/ul (1.6-7.5); NEUTROPHILS % 74.6 % (39.0-77.0); PLATELET COUNT 355 10^3/UL (140-415); RED BLOOD COUNT 4.26 10^6/ul (4.20-5.40); RED CELL DISTRIBUTION WIDTH 14.4 % (11.5-14.5); WHITE BLOOD COUNT 9.9 10^3/ul (4.8-10.8)
[2017-01-15 01:43] LABS: URINE BLOOD (Dip) POC Negative (NEGATIVE)
[2017-01-15 02:31] LABS: ALBUMIN 4.3 g/dl (3.3-4.9)
[2017-01-15 02:32] LABS: POTASSIUM 3.4 mmol/L (3.5-5.1)
[2017-01-15 02:33] LABS: CREATININE 0.71 mg/dl (0.44-1.00)
[2017-01-15 02:34] LABS: ALBUMIN/GLOBULIN RATIO 1.26; BILIRUBIN,INDIRECT 0.3 mg/dl (0-1.1); BILIRUBIN,TOTAL 0.3 mg/dl (0.2-1.3); TOTAL PROTEIN 7.7 g/dl (6.1-8.1)
[2017-01-15] MEDS ORDERED: HYDR-902 PO (02:36)
[2017-01-15] MEDS ORDERED: NORG1TAB2 PO (02:36)
[2017-01-15 02:58] LABS: BARBITURATES NEGATIVE (NEGATIVE); BENZODIAZEPINES NEGATIVE (NEGATIVE); CANNABINOIDS NEGATIVE (NEGATIVE); COCAINE NEGATIVE (NEGATIVE); OPIATES NEGATIVE (NEGATIVE)
[2017-01-15] MEDS ORDERED: POTASSIUM CHLORIDE (SR) 20 MEQ TAB PO ONE (02:59)
[2017-01-15] MEDS ORDERED: PHENAZOPYRIDINE 100 MG TAB PO ONE (03:00)
[2017-01-15] MEDS: SOD CHLORIDE 0.9% 1,000 ML IV SCH ×3 (06:06→22:01)
[2017-01-15] MEDS ORDERED: ONDANSETRON 4 MG INJ IV PRN (06:30)
[2017-01-15] MEDS ORDERED: clonAZEPAM 0.5 MG TAB PO PRN (06:30)
[2017-01-15] MEDS ORDERED: NACL 0.9% 3 ML SYG IV SCH (06:30)
[2017-01-15] MEDS ORDERED: ACETAMINOPHEN 325 MG TAB PO PRN (06:30)
[2017-01-15] MEDS ORDERED: HYDROmorphONE 1 MG/ML SYG IV ONE (07:02)
[2017-01-15] MEDS: CEFTRIAXONE 1 GM/50 ML (PMX) 50 ML IVPB SCH (07:13)
[2017-01-15] MEDS: BUPROPION (XL) 150 MG TAB PO SCH (08:18)
[2017-01-15] MEDS: FAMOTIDINE 20 MG TAB PO SCH ×2 (08:18→21:18)
[2017-01-15] MEDS ORDERED: SERTRALINE 100 MG TAB PO SCH (09:00)
[2017-01-15] MEDS ORDERED: HYDROmorphONE 1 MG/ML SYG IV PRN (10:00)
[2017-01-15] MEDS: METHYLPHENIDATE HCL 54 MG XX SCH ×2 (10:56→19:00)
[2017-01-15] MEDS: [UNRECOGNIZED DRUG - OTHER] XX SCH ×2 (10:56→19:00)
[2017-01-15] MEDS ORDERED: POTASSIUM CHLORIDE (SR) 20 MEQ TAB PO STA (12:48)
[2017-01-15] MEDS: ONDANSETRON 4 MG INJ IV PRN ×2 (13:00→18:37)
[2017-01-15] MEDS: HYDROmorphONE 1 MG/ML SYG IV PRN ×3 (13:01→19:01)
--- NOTE | 2017-01-15 13:01 | HP ---
Date/Time of Note Date/Time of Note DATE: 01/15/17 TIME: 12:52 Assessment/Plan VTE Prophylaxis VTE Prophylaxis Intervention: SCD's Lines/Catheters IV Catheter Type (from Nrsg): Peripheral IV Urinary Cath still in place: Yes Reason Cath still needed: urinary retention Assessment/Plan Chief Complaint/Hosp Course 1.Pelvic pain 2. Anxiety 3. Chronic pain syndrome 4. hs Anemia 5. Hs anemia Hs left ovary cyst removal Problems: Assessment/Plan 1. Continue antibiotics 2. Keep miller 3. Dr Conti for urology consult 4. Dr Sylvester for chronic pain disorder HPI/ROS Admit Date/Time Admit Date/Time January 15, 2017 at 05:02 Hx of Present Illness Pt resented herself on 01/14/2017 with intractable pelvic pain 06/07. Miller catheter was placed. Antibiotics started. Pt was discharged recently from [facility] after balloon dilatation and cystoscopy performed by dr Montenegro. He did not confirmed that pt has a interstitial cystitis. During her hospital stay she was seen by Dr Sylvester for pain control , Dr Brennan for anemia. She is admitted on telemetry service mostly because her high dilaudid IV usage. ROS Constitutional: no complaints Eyes: no complaints Respiratory: no complaints Cardiovascular: no complaints Gastrointestinal: no complaints Genitourinary: dysuria, other (severe pelvic pain) Skin: no complaints Neurologic: no complaints Psychological: anxiety, depression Immunologic: no complaints PMH/Family/Social Past Medical History Medical History: no pertinent history, urinary tract infection, other (anemia) Past Surgical History Past Surgical Hx: appendectomy, other (ovary cyst removal right side, cystoscopy) Family History Significant Family History: no pertinent family hx Social History Alcohol Use: none Smoking Status: Never smoker Drug Use: none Exam/Review of Systems Vital Signs Vitals Vital Signs Date Time Temp Pulse Resp B/P Pulse Ox O2 Delivery O2 Flow Rate FiO2 01/15/17 11:24 98.1 127 20 152/91 96 01/15/17 06:57 Room Air Exam Constitutional: alert, oriented Psych: no complaints Head: normocephalic Eyes: nl conjunctiva ENMT: nl external ears & nose Neck: non-tender, supple Respiratory: clear to auscultation, normal air movement Cardiovascular: nl pulses, regular rate and rhythm Gastrointestinal: soft Genitourinary - Female: nl external genitalia, other (miller) Musculoskeletal: nl extremities to inspection Extremities: normal pulses 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 II-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 intact Skin: nl turgor Labs Result Diagram: 01/15/175 01/15/17 0125 Medications Medications Current Medications Sodium Chloride (NS) 1,000 ml @ 75 mls/hr [id number] IV Last administered on 01/15 06:06; Admin Dose 75 MLS/HR; Start 01/15/17 at 06:06 Lorazepam (Ativan) 0.5 mg Q6H PRN IV ANXIETY; Start 01/15/17 at 06:30 Ondansetron HCl (Zofran Inj) 4 mg Q6H PRN IV NAUSEA AND/OR VOMITING Last administered on 01/15/17 07:12; Admin Dose 4 MG; Start 01/15/17 at 06:30 Acetaminophen (Tylenol Tab) 650 mg Q6H PRN PO PAIN LEVEL 1-3 OR FEVER; Start at 06:30 Famotidine (Pepcid) 20 mg Q12 PO Last administered on 01/15/17 08:18; Admin Dose 20 MG; Start 01/15/17 at 09:00 Bupropion HCl (Wellbutrin Xl) 300 mg DAILY PO Last administered on 01/15/17 08 :18; Admin Dose 300 MG; Start 01/15/17 at 09:00 Clonazepam (Klonopin) 1 mg BID PRN PO ANXIETY; Start 01/15/17 at 06:30 Sertraline HCl (Zoloft) 200 mg DAILY PO ; Start 01/15/17 at 09:00 Trazodone HCl (Desyrel) 100 mg QHS PO ; Start 01/15/17 at 21:00 Miscellaneous Information 54 mg 54 mg DAILY PO ; Start 01/15/17 at 09:00; Status UNV Ceftriaxone Sodium (Rocephin) 50 ml @ 100 mls/hr Q24H IVPB Last administered on 01/15/17 07:13; Admin Dose 100 MLS/HR; Start 01/15/17 at 06:30 Miscellaneous Information (*Order Clarification Bulletin) Methylphenidate HCl ( Concerta) 54 MG: PLE... Q8H XX ; Start 01/15/17 at 11:00 Hydromorphone HCl (Dilaudid) 1 mg Q3H PRN IV PAIN; Start 01/15/17 at 12:30 SHEREEN SHIPLEY January 15, 2017 13:01
[2017-01-15] MEDS: METOCLOPRAMIDE 10 MG INJ IV PRN (14:34)
[2017-01-15] MEDS: oxyCODONE 5 MG TAB PO PRN (17:46)
[2017-01-15] MEDS: traZODone 100 MG TAB PO SCH (21:00)
[2017-01-15] MEDS: LORAZEPAM 2 MG INJ IV PRN (21:18)
[2017-01-15] MEDS ORDERED: HYDROmorphONE 2 MG/ML SYG IV PRN (21:30)
[2017-01-15] MEDS ORDERED: HYDROmorphONE 2 MG TAB PO PRN (21:30)
[2017-01-15] MEDS: SERTRALINE 100 MG TAB PO SCH (21:58)
[2017-01-15] MEDS: HYDROmorphONE 2 MG/ML SYG IV PRN (21:58)
[2017-01-16] VITALS (11 sets, daily range): BP systolic 119–156; BP diastolic 70–100; PULSE 87–100; RESP 15–20
[2017-01-16] MEDS: HYDROmorphONE 2 MG/ML SYG IV PRN ×6 (01:46→22:39)
[2017-01-16] MEDS: ONDANSETRON 4 MG INJ IV PRN ×2 (01:46→22:42)
[2017-01-16] MEDS: METHYLPHENIDATE HCL 54 MG XX SCH ×3 (03:00→20:43)
[2017-01-16] MEDS: [UNRECOGNIZED DRUG - OTHER] XX SCH ×3 (03:00→20:43)
[2017-01-16] MEDS: CEFTRIAXONE 1 GM/50 ML (PMX) 50 ML IVPB SCH (05:36)
[2017-01-16] MEDS: METOCLOPRAMIDE 10 MG INJ IV PRN ×2 (05:50→13:22)
[2017-01-16 06:14] LABS: ADD SCAN DIFF NO
[2017-01-16 06:20] LABS: BASOPHILS % 0.4 % (0.0-2.0); EOSINOPHILS # 0.1 10^3/ul (0.0-0.5); EOSINOPHILS % 1.3 % (0.0-7.0); HEMATOCRIT 35.9 % (37.0-47.0); HEMOGLOBIN 11.5 g/dl (12.0-16.0); LYMPHOCYTES # 1.6 10^3/ul (0.8-2.9); LYMPHOCYTES % 29.6 % (15.0-51.0); MEAN CORPUSCULAR HEMOGLOBIN 28.5 pg (29.0-33.0); MEAN CORPUSCULAR VOLUME 89.1 fl (82.0-101.0); MEAN PLATELET VOLUME 8.8 fl (7.4-10.4); MONOCYTE # 0.4 10^3/ul (0.3-0.9); MONOCYTES % 6.7 % (0.0-11.0); NEUTROPHIL # 3.4 10^3/ul (1.6-7.5); NEUTROPHILS % 61.8 % (39.0-77.0); PLATELET COUNT 294 10^3/UL (140-415); RED BLOOD COUNT 4.03 10^6/ul (4.20-5.40); RED CELL DISTRIBUTION WIDTH 14.5 % (11.5-14.5); WHITE BLOOD COUNT 5.5 10^3/ul (4.8-10.8)
[2017-01-16 06:42] LABS: ALBUMIN 3.9 g/dl (3.3-4.9); ALBUMIN/GLOBULIN RATIO 1.3; BILIRUBIN,INDIRECT 0.3 mg/dl (0-1.1); BILIRUBIN,TOTAL 0.3 mg/dl (0.2-1.3); CREATININE 0.73 mg/dl (0.44-1.00); POTASSIUM 4.3 mmol/L (3.5-5.1); TOTAL PROTEIN 6.9 g/dl (6.1-8.1)
[2017-01-16] MEDS: LORAZEPAM 2 MG INJ IV PRN ×2 (06:55→18:43)
[2017-01-16] MEDS: FAMOTIDINE 20 MG TAB PO SCH ×2 (08:17→20:43)
[2017-01-16] MEDS: BUPROPION (XL) 150 MG TAB PO SCH (08:17)
[2017-01-16] MEDS ORDERED: PATIENT'S OWN MEDICATION PO SCH (09:00)
[2017-01-16] MEDS: SOD CHLORIDE 0.9% 1,000 ML IV SCH (12:08)
[2017-01-16] MEDS: NORETHINDRONE-ETHINYL ESTR 0.5-35 TAB PO SCH (17:22)
--- NOTE | 2017-01-16 17:33 | PN ---
Date/Time of Note Date/Time of Note DATE: 01/16/17 TIME: 17:32 Assessment/Plan VTE Prophylaxis VTE Prophylaxis Intervention: other Lines/Catheters IV Catheter Type (from Nrsg): Peripheral IV Urinary Cath still in place: Yes Reason Cath still needed: other (indicate) Assessment/Plan Chief Complaint/Hosp Course PELVIC PAIN POSS UTI INT CYSTITIS PLAN PER AND ID Problems: Subjective 24 Hr Interval Summary Subjective hx not possible: other (PAIN BETTER) Exam/Review of Systems Vital Signs Vitals Vital Signs Date Time Temp Pulse Resp B/P Pulse Ox O2 Delivery O2 Flow Rate FiO2 01/16/17 16:18 100 01/16/17 15:37 98.4 18 130/100 96 01/15/17 06:57 Room Air Intake and Output 01/15/17 01/15/17 01/16/17 15:00 23:00 07:00 Intake Total 2100 ml 1400 ml Output Total 10 ml 2000 ml 1900 ml Balance -10 ml 100 ml -500 ml Exam Respiratory: clear to auscultation Cardiovascular: regular rate and rhythm Gastrointestinal: soft Results Result Diagram: 01/16/17 0550 01/16/17 0550 Results 24 hrs Laboratory Tests Test 01/16/17 05:50 White Blood Count 5.5 # Red Blood Count 4.03 L Hemoglobin 11.5 L Hematocrit 35.9 L Mean Corpuscular Volume 89.1 Mean Corpuscular Hemoglobin 28.5 L Mean Corpuscular Hemoglobin Concent 32.0 Red Cell Distribution Width 14.5 Platelet Count 294 Mean Platelet Volume 8.8 Neutrophils % 61.8 Lymphocytes % 29.6 Monocytes % 6.7 Eosinophils % 1.3 Basophils % 0.4 Nucleated Red Blood Cells % 0.0 Neutrophils # 3.4 Lymphocytes # 1.6 Monocytes # 0.4 Eosinophils # 0.1 Basophils # 0.0 Nucleated Red Blood Cells # 0.0 Sodium Level 138 Potassium Level 4.3 Chloride Level 104 Carbon Dioxide Level 26 Anion Gap 12 Blood Urea Nitrogen 6 L Creatinine 0.73 Glucose Level 84 # Calcium Level 9.0 Total Bilirubin 0.3 Direct Bilirubin 0.00 Indirect Bilirubin 0.3 Aspartate Amino Transf (AST/SGOT) 17 Alanine Aminotransferase (ALT/SGPT) 27 Alkaline Phosphatase 66 Total Protein 6.9 Albumin 3.9 Globulin 3.00 Albumin/Globulin Ratio 1.30 Medications Medications Current Medications Sodium Chloride (NS) 1,000 ml @ 75 mls/hr [id number] IV Last administered on 01/16 12:08; Admin Dose 75 MLS/HR; Start 01/15/17 at 06:06 Lorazepam (Ativan) 0.5 mg Q6H PRN IV ANXIETY Last administered on 01/16/17 06: 55; Admin Dose 0.5 MG; Start 01/15/17 at 06:30 Acetaminophen (Tylenol Tab) 650 mg Q6H PRN PO PAIN LEVEL 1-3 OR FEVER; Start at 06:30 Famotidine (Pepcid) 20 mg Q12 PO Last administered on 01/16/17 08:17; Admin Dose 20 MG; Start 01/15/17 at 09:00 Bupropion HCl (Wellbutrin Xl) 300 mg DAILY PO Last administered on 01/16/17 08 :17; Admin Dose 300 MG; Start 01/15/17 at 09:00 Clonazepam (Klonopin) 1 mg BID PRN PO ANXIETY; Start 01/15/17 at 06:30 Trazodone HCl (Desyrel) 100 mg QHS PO ; Start 01/15/17 at 21:00 Miscellaneous Information 54 mg 54 mg DAILY PO ; Start 01/15/17 at 09:00; Status UNV Ceftriaxone Sodium (Rocephin) 50 ml @ 100 mls/hr Q24H IVPB Last administered on 01/16/17 05:36; Admin Dose 100 MLS/HR; Start 01/15/17 at 06:30 Miscellaneous Information (*Order Clarification Bulletin) Methylphenidate HCl ( Concerta) 54 MG: PLE... Q8H XX ; Start 01/15/17 at 11:00 Ondansetron HCl (Zofran Inj) 4 mg Q4H PRN IV NAUSEA AND/OR VOMITING Last administered on 01/16/17 01:46; Admin Dose 4 MG; Start 01/15/17 at 13:00 Sertraline HCl (Zoloft) 200 mg QHS PO Last administered on 01/15/17 21:58; Admin Dose 200 MG; Start 01/15/17 at 21:00 Metoclopramide HCl (Reglan) 10 mg Q6H PRN IV nausea/vomiting Last administered on 5/21/17at 13:22; Admin Dose 10 MG; Start 01/15/17 at 14:30 Oxycodone HCl (Roxicodone) 10 mg Q6H PRN PO break through pain 4-6 Last administered on 01/15/17 17:46; Admin Dose 10 MG; Start 01/15/17 at 17:00; Status Future hold Hydromorphone HCl (Dilaudid) 2 mg Q4H PRN IV SEVERE PAIN LEVEL 7-10 Last administered on 01/16/17 13:16; Admin Dose 2 MG; Start 01/15/17 at 22:00 Ethinyl Estradiol/ Norethindrone (Nortrel 0.5-35-28 Tablet) 1 each DAILY PO Last administered on 01/16/17 17:22; Admin Dose 1 EACH; Start 01/16/17 at 16:30 ; Stop 02/05/17 at 09:01 DENVER MITCHELL MD January 16, 2017 17:33
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
[2017-01-16] MEDS ORDERED: FOSFOMYCIN 3 GM PACKET PO ONE (20:00)
[2017-01-16] MEDS: traZODone 100 MG TAB PO SCH (20:43)
[2017-01-16] MEDS: SERTRALINE 100 MG TAB PO SCH (20:43)
[2017-01-17] VITALS (11 sets, daily range): BP systolic 107–143; BP diastolic 58–75; PULSE 90–105; RESP 16–23
[2017-01-17] MEDS: HYDROmorphONE 2 MG/ML SYG IV PRN ×6 (02:44→22:25)
[2017-01-17] MEDS: METHYLPHENIDATE HCL 54 MG XX SCH ×3 (03:00→18:17)
[2017-01-17] MEDS: [UNRECOGNIZED DRUG - OTHER] XX SCH ×3 (03:00→18:17)
[2017-01-17] MEDS: SOD CHLORIDE 0.9% 1,000 ML IV SCH (03:29)
[2017-01-17] MEDS: LORAZEPAM 2 MG INJ IV PRN ×3 (03:30→23:08)
[2017-01-17] MEDS: FAMOTIDINE 20 MG TAB PO SCH ×2 (09:13→21:37)
[2017-01-17] MEDS: BUPROPION (XL) 150 MG TAB PO SCH (09:14)
[2017-01-17] MEDS: NORETHINDRONE-ETHINYL ESTR 0.5-35 TAB PO SCH (10:49)
[2017-01-17] MEDS: ONDANSETRON 4 MG INJ IV PRN ×2 (10:49→18:33)
--- NOTE | 2017-01-17 13:53 | PN ---
DATE: 01/17/2017 SUBJECTIVE: No acute changes. The patient is alert, lying comfortably in bed. No fevers. Complai joe of lower abdominal pain. MICROBIOLOGY: Urine culture growing E. coli, less than 10,000 colonies. ANTIMICROBIALS: Rocephin, discontinued. PHYSICAL EXAMINATION: GENERAL: Well-developed, well-nourished young woman, who is alert, in no distress. HEENT: Head atraumatic, normocephalic. Sclerae anicteric. Buccal mucosa dry. NECK: Supple. CHEST: Chest rise is symmetrical. Breath sounds clear. HEART: S1, S2. ABDOMEN: Soft, bowel sounds present. EXTREMITIES: Without cyanosis. ASSESSMENT: 1. Urinary tract infection. Urine culture grew Escherichia coli, but less than 10,000 colonies. 2. Interstitial cystitis, status post hydrodilation by Dr. Montenegro. 3. History of disease. 4. Chronic pain, opioid dependence. PLAN: The patient is clinically stable, still with significant tenderness on palpation over the supr apubic area. We may start her on oral ciprofloxacin or Macrobid. Continue management as per primar y team and consultants. Dictated By: HUDSON DOLL LEAD INGOT MOLDER for DAVON REZA/AYAN Conf#: [id number] DID#: [id number]
--- NOTE | 2017-01-17 16:56 | PN ---
Date/Time of Note Date/Time of Note DATE: 01/17/17 TIME: 16:55 Assessment/Plan VTE Prophylaxis VTE Prophylaxis Intervention: other Lines/Catheters IV Catheter Type (from Nrsg): Peripheral IV Urinary Cath still in place: Yes Reason Cath still needed: other (indicate) Assessment/Plan Chief Complaint/Hosp Course PELVIC PAIN POSS UTI INT CYSTITIS PLAN PER AND ID per dr ibrahim Problems: Subjective 24 Hr Interval Summary Cardiovascular: no complaints Gastrointestinal: no complaints Exam/Review of Systems Vital Signs Vitals Vital Signs Date Time Temp Pulse Resp B/P Pulse Ox O2 Delivery O2 Flow Rate FiO2 01/17/17 16:30 105 01/17/17 15:08 99.3 23 120/58 97 01/15/17 06:57 Room Air Intake and Output 01/16/17 01/16/17 01/17/17 15:00 23:00 07:00 Intake Total 860 ml 1650 ml Output Total 1300 ml 600 ml Balance -440 ml 1050 ml Exam Cardiovascular: regular rate and rhythm Gastrointestinal: soft Musculoskeletal: nl extremities to inspection Results Result Diagram: 01/16/17 0550 01/16/17 0550 Medications Medications Current Medications Sodium Chloride (NS) 1,000 ml @ 75 mls/hr [id number] IV Last administered on 01/17 03:29; Admin Dose 75 MLS/HR; Start 01/15/17 at 06:06 Lorazepam (Ativan) 0.5 mg Q6H PRN IV ANXIETY Last administered on 01/17/17 15: 27; Admin Dose 0.5 MG; Start 01/15/17 at 06:30 Acetaminophen (Tylenol Tab) 650 mg Q6H PRN PO PAIN LEVEL 1-3 OR FEVER; Start at 06:30 Famotidine (Pepcid) 20 mg Q12 PO Last administered on 01/17/17 09:13; Admin Dose 20 MG; Start 01/15/17 at 09:00 Bupropion HCl (Wellbutrin Xl) 300 mg DAILY PO Last administered on 01/17/17 09 :14; Admin Dose 300 MG; Start 01/15/17 at 09:00 Clonazepam (Klonopin) 1 mg BID PRN PO ANXIETY; Start 01/15/17 at 06:30 Trazodone HCl (Desyrel) 100 mg QHS PO Last administered on 01/16/17 20:43; Admin Dose 100 MG; Start 01/15/17 at 21:00 Miscellaneous Information 54 mg DAILY PO ; Start 01/15/17 at 09:00; Status UNV Miscellaneous Information (*Order Clarification Bulletin) Methylphenidate HCl ( Concerta) 54 MG: PLE... Q8H XX ; Start 01/15/17 at 11:00 Ondansetron HCl (Zofran Inj) 4 mg Q4H PRN IV NAUSEA AND/OR VOMITING Last administered on 01/17/17 10:49; Admin Dose 4 MG; Start 01/15/17 at 13:00 Sertraline HCl (Zoloft) 200 mg QHS PO Last administered on 01/16/17 20:43; Admin Dose 200 MG; Start 01/15/17 at 21:00 Metoclopramide HCl (Reglan) 10 mg Q6H PRN IV nausea/vomiting Last administered on 01/16/17 13:22; Admin Dose 10 MG; Start 01/15/17 at 14:30 Oxycodone HCl (Roxicodone) 10 mg Q6H PRN PO break through pain 4-6 Last administered on 01/15/17 17:46; Admin Dose 10 MG; Start 01/15/17 at 17:00; Status Future hold Hydromorphone HCl (Dilaudid) 2 mg Q4H PRN IV SEVERE PAIN LEVEL 7-10 Last administered on 01/17/17 14:29; Admin Dose 2 MG; Start 01/15/17 at 22:00 Ethinyl Estradiol/ Norethindrone (Nortrel 0.5-35-28 Tablet) 1 each DAILY PO Last administered on 01/17/17 10:49; Admin Dose 1 EACH; Start 01/16/17 at 16:30 ; Stop 02/05/17 at 09:01 Nitrofurantoin Macrocrystals (Macrobid) 100 mg BID PO ; Start 01/17/17 at 21:00 DENVER MITCHELL MD January 17, 2017 16:56
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
[2017-01-17] MEDS: NITROFURANTOIN (SR) 100 MG CAP PO SCH (21:36)
[2017-01-17] MEDS: SERTRALINE 100 MG TAB PO SCH (21:37)
[2017-01-17] MEDS: traZODone 100 MG TAB PO SCH (21:37)
--- NOTE | 2017-01-17 21:59 | CONS ---
DATE OF ADMISSION: 01/15/2017 DATE OF CONSULTATION: 01/17/2017 REQUESTING PHYSICIAN: Spencer Mitchell MD REASON FOR CONSULTATION: Suprapubic pain. HISTORY OF PRESENT ILLNESS: This is a 26-year-old female with a 9-year history of interstitial cyst itis. She reports that she had been under treatment in a different state. She reports that overall her symptoms flare up every few months to every 1 to 2 years. Furthermore, she reports that she smith d been able to manage her symptoms at home with medications such as Pyridium and occasional oxycodon e. The patient developed a severe flare up a few weeks ago. She subsequently underwent a cystoscopy wi th hydrodistention with DMSO by Dr. Montenegro. This was done 1 week ago. She reports that since this treatment, she has had severe suprapubic pain, urgency, sensation of incomplete bladder emptying. The patient apparently does develop severe pain usually with DMSO for 2 or 3 days and then it improv es. She reports she has had multiple previous treatments with DMSO; however, she has never had a pr olonged episode such as this one with continued suprapubic pain, urgency, and sensation of incomplet e bladder emptying. On urine culture recently, she was found to have 10,000 E. coli. She has not h ad any recent gross hematuria. She reports her pain is about a 6 to 7/10, constant, suprapubic pain . This is very bothersome to her. She has become depressed over this situation. The patient also apparently has a prior history of a kidney stone, which was treated with a stent pl acement. The stent was eventually apparently removed. PAST MEDICAL HISTORY: Anxiety, depression, interstitial cystitis. PAST SURGICAL HISTORY: Right tibial surgery, appendectomy, right neck lymph node biopsy, multiple p revious cystoscopies. ALLERGIES: 1. HYDROCODONE. 2. MORPHINE. SOCIAL HISTORY: The patient does not smoke. Does not drink alcohol. REVIEW OF SYSTEMS: CONSTITUTIONAL: No fevers, no chills, but patient has decreased appetite and feels tired. HEENT: No loss of hearing. No ear or sinus pain. No rhinorrhea, nosebleed, or sore throat. CARDIOVASCULAR: No chest pain, no shortness breath; however, she has had some increased heart rate. Therefore, she is the telemetry unit. GASTROINTESTINAL: The patient reports she has started to develop some diarrhea, possibly some blood in her diarrhea. She also has nausea and decreased appetite. NEUROLOGIC: No dizziness. PSYCHIATRIC: The patient feels anxious and depressed over her situation. CURRENT MEDICATIONS: 1. Nitrofurantoin. 2. Estradiol. 3. Hydromorphone. 4. Trazodone. 5. Sertraline. 6. Oxycodone. 7. Reglan. 8. Ondansetron. 9. Methylphenidate. 10. Pepcid. 11. Wellbutrin. 12. Lorazepam. 13. Clonazepam. PHYSICAL EXAMINATION: CONSTITUTIONAL: The patient appears to be in mild acute distress. VITAL SIGNS: Blood pressure 140/58, heart rate of 99, although heart rate has gone up to 118, tempe rature 99.3. GASTROINTESTINAL: Abdomen is soft, nondistended. Lower abdominal tenderness identified. No reboun d, no rigidity. Liver and spleen normal. GENITOURINARY: Kidneys, no CVA tenderness. Bladder, suprapubic tenderness is identified. NECK: Normal appearing, symmetric. Normal tracheal position. EXTREMITIES: No edema. DIAGNOSTIC DATA: Renal ultrasound shows bilateral kidneys without hydronephrosis. No kidney stones are seen. White blood cell count 5.5, hemoglobin 11.5. Creatinine 0.7. Urine culture from 2016 shows E. coli less than 10,000 pansensitive, only resistant to ampicillin and Bactrim. ASSESSMENT: 1. Interstitial cystitis flareup. 2. Suprapubic pain. 3. Bladder spasmodic pain. 4. No evidence of true urinary tract infection. 5. Abdominal pain, diarrhea. RECOMMENDATIONS: 1. Continue current medications. 2. Oxybutynin. 3. Pyridium. 4. Recommend GI evaluation. 5. Recommend pain management. Dictated By: MIKAL CAMPBELL MD SR/NTS Conf#: [id number] DID#: [id number] CC: SPENCER MITCHELL MD;*End*
[2017-01-17] MEDS: PHENAZOPYRIDINE 200 MG TAB PO SCH (22:59)
[2017-01-17] MEDS: OXYBUTYNIN (XL) 5 MG TAB PO SCH (23:00)
[2017-01-17] MEDS: oxyCODONE 5 MG TAB PO PRN (23:32)
[2017-01-18] VITALS (12 sets, daily range): BP systolic 118–145; BP diastolic 58–81; PULSE 87–160; RESP 20
[2017-01-18] MEDS: HYDROmorphONE 2 MG/ML SYG IV PRN ×7 (02:35→22:36)
[2017-01-18] MEDS: [UNRECOGNIZED DRUG - OTHER] XX SCH ×3 (03:00→19:00)
[2017-01-18] MEDS: METHYLPHENIDATE HCL 54 MG XX SCH ×3 (03:00→19:00)
[2017-01-18] MEDS: LORAZEPAM 2 MG INJ IV PRN (09:28)
[2017-01-18] MEDS: OXYBUTYNIN (XL) 5 MG TAB PO SCH (09:30)
[2017-01-18] MEDS: NITROFURANTOIN (SR) 100 MG CAP PO SCH ×2 (09:31→21:04)
[2017-01-18] MEDS: BUPROPION (XL) 150 MG TAB PO SCH (09:31)
[2017-01-18] MEDS: PHENAZOPYRIDINE 200 MG TAB PO SCH ×3 (09:31→21:05)
[2017-01-18] MEDS: FAMOTIDINE 20 MG TAB PO SCH ×2 (09:31→21:04)
[2017-01-18] MEDS: NORETHINDRONE-ETHINYL ESTR 0.5-35 TAB PO SCH (09:33)
[2017-01-18] MEDS: SOD CHLORIDE 0.9% 1,000 ML IV SCH ×3 (09:36→21:03)
--- NOTE | 2017-01-18 14:32 | CONS ---
Date/Time of Note Date/Time of Note DATE: 01/18/17 TIME: 14:30 Assessment/Plan Assessment/Plan Chief Complaint/Hosp Course SUBJECTIVE: No acute changes. The patient is alert, lying comfortably in bed. No fevers. MICROBIOLOGY: Urine culture growing E. coli, less than 10,000 colonies. ANTIMICROBIALS: Macrobid PHYSICAL EXAMINATION: GENERAL: Well-developed, well-nourished young woman, who is alert, in no distress. HEENT: Head atraumatic, normocephalic. Sclerae anicteric. Buccal mucosa dry. NECK: Supple. CHEST: Chest rise is symmetrical. Breath sounds clear. HEART: S1, S2. ABDOMEN: Soft, bowel sounds present. EXTREMITIES: Without cyanosis. ASSESSMENT: 1. Urinary tract infection. Urine culture grew Escherichia coli, but less than 10,000 colonies. 2. Interstitial cystitis, status post hydrodilation by Dr. Montenegro. 3. History of von Willebrand disease disease. 4. Chronic pain with opioid dependence. PLAN: The patient is stable, continue present care, abx, management as per primary team and consultants. DW staff/pt Problems: Consultation Date/Type/Reason Admit Date/Time January 15, 2017 at 05:02 Initial Consult Date Type of Consultation: ID Exam/Review of Systems Vital Signs Vitals Vital Signs Date Time Temp Pulse Resp B/P Pulse Ox O2 Delivery O2 Flow Rate FiO2 01/18/17 12:35 96 01/18/17 11:46 98.3 20 124/77 95 01/15/17 06:57 Room Air Intake and Output 01/17/17 01/17/17 01/18/17 15:00 23:00 07:00 Intake Total 710 ml 900 ml Output Total 1200 ml 600 ml Balance -490 ml 300 ml Results Result Diagram: 01/16/17 0550 01/16/17 0550 Medications Medications Current Medications Sodium Chloride (NS) 1,000 ml @ 75 mls/hr [id number] IV Last administered on 01/18 09:36; Admin Dose 75 MLS/HR; Start 01/15/17 at 06:06 Lorazepam (Ativan) 0.5 mg Q6H PRN IV ANXIETY Last administered on 01/18/17 09: 28; Admin Dose 0.5 MG; Start 01/15/17 at 06:30 Acetaminophen (Tylenol Tab) 650 mg Q6H PRN PO PAIN LEVEL 1-3 OR FEVER; Start at 06:30 Famotidine (Pepcid) 20 mg Q12 PO Last administered on 01/18/17 09:31; Admin Dose 20 MG; Start 01/15/17 at 09:00 Bupropion HCl (Wellbutrin Xl) 300 mg DAILY PO Last administered on 01/18/17 09 :31; Admin Dose 300 MG; Start 01/15/17 at 09:00 Clonazepam (Klonopin) 1 mg BID PRN PO ANXIETY; Start 01/15/17 at 06:30 Trazodone HCl (Desyrel) 100 mg QHS PO Last administered on 01/17/17 21:37; Admin Dose 100 MG; Start 01/15/17 at 21:00 Miscellaneous Information 54 mg DAILY PO ; Start 01/15/17 at 09:00; Status UNV Miscellaneous Information (*Order Clarification Bulletin) Methylphenidate HCl ( Concerta) 54 MG: PLE... Q8H XX ; Start 01/15/17 at 11:00 Ondansetron HCl (Zofran Inj) 4 mg Q4H PRN IV NAUSEA AND/OR VOMITING Last administered on 01/17/17 18:33; Admin Dose 4 MG; Start 01/15/17 at 13:00 Sertraline HCl (Zoloft) 200 mg QHS PO Last administered on 01/17/17 21:37; Admin Dose 200 MG; Start 01/15/17 at 21:00 Metoclopramide HCl (Reglan) 10 mg Q6H PRN IV nausea/vomiting Last administered on 01/16/17 13:22; Admin Dose 10 MG; Start 01/15/17 at 14:30 Oxycodone HCl (Roxicodone) 10 mg Q6H PRN PO break through pain 4-6 Last administered on 01/17/17 23:32; Admin Dose 10 MG; Start 01/15/17 at 17:00; Status Future hold Hydromorphone HCl (Dilaudid) 2 mg Q4H PRN IV SEVERE PAIN LEVEL 7-10 Last administered on 01/18/17 11:13; Admin Dose 2 MG; Start 01/15/17 at 22:00 Ethinyl Estradiol/ Norethindrone (Nortrel 0.5-35-28 Tablet) 1 each DAILY PO Last administered on 01/18/17 09:33; Admin Dose 1 EACH; Start 01/16/17 at 16:30 ; Stop 02/05/17 at 09:01 Nitrofurantoin Macrocrystals (Macrobid) 100 mg BID PO Last administered on 01/18 09:31; Admin Dose 100 MG; Start 01/17/17 at 21:00 Oxybutynin Chloride (Ditropan Xl) 10 mg DAILY PO Last administered on 09:30; Admin Dose 10 MG; Start 01/17/17 at 22:00 Phenazopyridine HCl (Pyridium) 200 mg TID PO Last administered on 01/18/17 09: 31; Admin Dose 200 MG; Start 01/17/17 at 22:00 HUDSON DOLL NP January 18, 2017 14:32
[2017-01-18] MEDS: oxyCODONE 5 MG TAB PO PRN (16:25)
[2017-01-18] MEDS: SERTRALINE 100 MG TAB PO SCH (21:04)
[2017-01-18] MEDS: traZODone 100 MG TAB PO SCH (21:05)
[2017-01-18] MEDS: L ACIDOPHIL/B LACTIS/B LONGUM CAPSULE PO SCH (21:05)
--- NOTE | 2017-01-18 23:26 | PN ---
Date/Time of Note Date/Time of Note DATE: 01/18/17 TIME: 23:25 Assessment/Plan VTE Prophylaxis VTE Prophylaxis Intervention: other Lines/Catheters IV Catheter Type (from Nrsg): Peripheral IV Urinary Cath still in place: Yes Reason Cath still needed: other (indicate) Assessment/Plan Chief Complaint/Hosp Course PELVIC PAIN POSS UTI INT CYSTITIS HX PLAN PER AND ID per dr ibrahim CONTINUE PAIN MEDS Problems: Subjective 24 Hr Interval Summary Subjective hx not possible: other (SEEN BY ) Exam/Review of Systems Vital Signs Vitals Vital Signs Date Time Temp Pulse Resp B/P Pulse Ox O2 Delivery O2 Flow Rate FiO2 01/18/17 20:01 98.3 90 20 118/68 95 01/15/17 06:57 Room Air Intake and Output 01/17/17 01/17/17 01/18/17 15:00 23:00 07:00 Intake Total 710 ml 900 ml Output Total 1200 ml 600 ml Balance -490 ml 300 ml Exam Respiratory: clear to auscultation Cardiovascular: regular rate and rhythm Gastrointestinal: soft Results Result Diagram: 01/16/17 0550 01/16/17 0550 Medications Medications Current Medications Sodium Chloride (NS) 1,000 ml @ 75 mls/hr [id number] IV Last administered on 01/18 21:03; Admin Dose 75 MLS/HR; Start 01/15/17 at 06:06 Lorazepam (Ativan) 0.5 mg Q6H PRN IV ANXIETY Last administered on 01/18/17 09: 28; Admin Dose 0.5 MG; Start 01/15/17 at 06:30 Acetaminophen (Tylenol Tab) 650 mg Q6H PRN PO PAIN LEVEL 1-3 OR FEVER; Start at 06:30 Famotidine (Pepcid) 20 mg Q12 PO Last administered on 01/18/17 21:04; Admin Dose 20 MG; Start 01/15/17 at 09:00 Bupropion HCl (Wellbutrin Xl) 300 mg DAILY PO Last administered on 01/18/17 09 :31; Admin Dose 300 MG; Start 01/15/17 at 09:00 Clonazepam (Klonopin) 1 mg BID PRN PO ANXIETY; Start 01/15/17 at 06:30 Trazodone HCl (Desyrel) 100 mg QHS PO Last administered on 01/18/17 21:05; Admin Dose 100 MG; Start 01/15/17 at 21:00 Miscellaneous Information 54 mg DAILY PO ; Start 01/15/17 at 09:00; Status UNV Miscellaneous Information (*Order Clarification Bulletin) Methylphenidate HCl ( Concerta) 54 MG: PLE... Q8H XX ; Start 01/15/17 at 11:00 Ondansetron HCl (Zofran Inj) 4 mg Q4H PRN IV NAUSEA AND/OR VOMITING Last administered on 01/17/17 18:33; Admin Dose 4 MG; Start 01/15/17 at 13:00 Sertraline HCl (Zoloft) 200 mg QHS PO Last administered on 01/18/17 21:04; Admin Dose 200 MG; Start 01/15/17 at 21:00 Metoclopramide HCl (Reglan) 10 mg Q6H PRN IV nausea/vomiting Last administered on 01/16/17 13:22; Admin Dose 10 MG; Start 01/15/17 at 14:30 Oxycodone HCl (Roxicodone) 10 mg Q6H PRN PO break through pain 4-6 Last administered on 01/18/17 16:25; Admin Dose 5 MG; Start 01/15/17 at 17:00; Status Future hold Hydromorphone HCl (Dilaudid) 2 mg Q4H PRN IV SEVERE PAIN LEVEL 7-10 Last administered on 01/18/17 22:36; Admin Dose 2 MG; Start 01/15/17 at 22:00 Ethinyl Estradiol/ Norethindrone (Nortrel 0.5-35-28 Tablet) 1 each DAILY PO Last administered on 01/18/17 09:33; Admin Dose 1 EACH; Start 01/16/17 at 16:30 ; Stop 02/05/17 at 09:01 Nitrofurantoin Macrocrystals (Macrobid) 100 mg BID PO Last administered on 01/18 21:04; Admin Dose 100 MG; Start 01/17/17 at 21:00 Oxybutynin Chloride (Ditropan Xl) 10 mg DAILY PO Last administered on 09:30; Admin Dose 10 MG; Start 01/17/17 at 22:00 Phenazopyridine HCl (Pyridium) 200 mg TID PO Last administered on 01/18/17 21: 05; Admin Dose 200 MG; Start 01/17/17 at 22:00 Lactobacillus Acidophilus (Florajen3 Capsule) 1 each BID PO Last administered on 01/18/17 21:05; Admin Dose 1 EACH; Start 01/18/17 at 21:00 DENVER MITCHELL MD January 18, 2017 23:26
[2017-01-19] MEDS: oxyCODONE 5 MG TAB PO PRN ×3 (00:34→19:55)
[2017-01-19] MEDS: HYDROmorphONE 2 MG/ML SYG IV PRN ×6 (02:29→21:27)
[2017-01-19] MEDS: [UNRECOGNIZED DRUG - OTHER] XX SCH ×3 (02:49→19:00)
[2017-01-19] MEDS: METHYLPHENIDATE HCL 54 MG XX SCH ×3 (02:49→19:00)
[2017-01-19] MEDS: SOD CHLORIDE 0.9% 1,000 ML IV SCH ×2 (03:20→10:06)
[2017-01-19 03:34] VITALS: BP 121/78
[2017-01-19 07:45] VITALS: BP 117/68; RESP 19
[2017-01-19] MEDS: PHENAZOPYRIDINE 200 MG TAB PO SCH ×3 (09:40→20:26)
[2017-01-19] MEDS: NITROFURANTOIN (SR) 100 MG CAP PO SCH ×2 (09:40→20:26)
[2017-01-19] MEDS: OXYBUTYNIN (XL) 5 MG TAB PO SCH (09:40)
[2017-01-19] MEDS: FAMOTIDINE 20 MG TAB PO SCH ×2 (09:41→20:26)
[2017-01-19] MEDS: L ACIDOPHIL/B LACTIS/B LONGUM CAPSULE PO SCH ×2 (12:30→20:32)
[2017-01-19] MEDS: BUPROPION (XL) 150 MG TAB PO SCH (12:30)
--- NOTE | 2017-01-19 13:01 | CONS ---
Date/Time of Note Date/Time of Note DATE: 01/19/17 TIME: 12:59 Assessment/Plan Assessment/Plan Chief Complaint/Hosp Course SUBJECTIVE: No acute changes. The patient is alert, c/o abdominal pain, nad. No fevers. MICROBIOLOGY: Urine culture growing E. coli, less than 10,000 colonies. ANTIMICROBIALS: Macrobid PHYSICAL EXAMINATION: GENERAL: Well-developed, well-nourished young woman, who is alert, in no distress. HEENT: Head atraumatic, normocephalic. Sclerae anicteric. Buccal mucosa dry. NECK: Supple. CHEST: Chest rise is symmetrical. Breath sounds clear. HEART: S1, S2. ABDOMEN: Soft, bowel sounds present. EXTREMITIES: Without cyanosis. ASSESSMENT: 1. Urinary tract infection. Urine culture grew Escherichia coli, but less than 10,000 colonies. 2. Interstitial cystitis, status post hydrodilation==> urology follows. 3. History of von Willebrand disease disease. 4. Chronic pain with opioid dependence. PLAN: Remains unchanged, continue present care, abx for couple more days, management as per primary team and consultants. DW staff Problems: Consultation Date/Type/Reason Admit Date/Time January 15, 2017 at 05:02 Type of Consultation: ID Exam/Review of Systems Vital Signs Vitals Vital Signs Date Time Temp Pulse Resp B/P Pulse Ox O2 Delivery O2 Flow Rate FiO2 01/19/17 07:45 98.0 80 19 117/68 95 Intake and Output 01/18/17 01/18/17 01/19/17 15:00 23:00 07:00 Intake Total 500 ml 600 ml Output Total 1165 ml Balance -665 ml 600 ml Results Result Diagram: 01/16/17 0550 01/16/17 0550 Medications Medications Current Medications Sodium Chloride (NS) 1,000 ml @ 75 mls/hr [id number] IV Last administered on 01/19 10:06; Admin Dose 75 MLS/HR; Start 01/15/17 at 06:06 Lorazepam (Ativan) 0.5 mg Q6H PRN IV ANXIETY Last administered on 01/18/17 09: 28; Admin Dose 0.5 MG; Start 01/15/17 at 06:30 Acetaminophen (Tylenol Tab) 650 mg Q6H PRN PO PAIN LEVEL 1-3 OR FEVER; Start at 06:30 Famotidine (Pepcid) 20 mg Q12 PO Last administered on 01/19/17 09:41; Admin Dose 20 MG; Start 01/15/17 at 09:00 Bupropion HCl (Wellbutrin Xl) 300 mg DAILY PO Last administered on 01/19/17 12 :30; Admin Dose 300 MG; Start 01/15/17 at 09:00 Clonazepam (Klonopin) 1 mg BID PRN PO ANXIETY; Start 01/15/17 at 06:30 Trazodone HCl (Desyrel) 100 mg QHS PO Last administered on 01/18/17 21:05; Admin Dose 100 MG; Start 01/15/17 at 21:00 Miscellaneous Information 54 mg DAILY PO ; Start 01/15/17 at 09:00; Status UNV Miscellaneous Information (*Order Clarification Bulletin) Methylphenidate HCl ( Concerta) 54 MG: PLE... Q8H XX ; Start 01/15/17 at 11:00 Ondansetron HCl (Zofran Inj) 4 mg Q4H PRN IV NAUSEA AND/OR VOMITING Last administered on 01/17/17 18:33; Admin Dose 4 MG; Start 01/15/17 at 13:00 Sertraline HCl (Zoloft) 200 mg QHS PO Last administered on 01/18/17 21:04; Admin Dose 200 MG; Start 01/15/17 at 21:00 Metoclopramide HCl (Reglan) 10 mg Q6H PRN IV nausea/vomiting Last administered on 01/16/17 13:22; Admin Dose 10 MG; Start 01/15/17 at 14:30 Oxycodone HCl (Roxicodone) 10 mg Q6H PRN PO break through pain 4-6 Last administered on 01/19/17 12:37; Admin Dose 10 MG; Start 01/15/17 at 17:00; Status Future hold Hydromorphone HCl (Dilaudid) 2 mg Q4H PRN IV SEVERE PAIN LEVEL 7-10 Last administered on 01/19/17 10:06; Admin Dose 2 MG; Start 01/15/17 at 22:00 Ethinyl Estradiol/ Norethindrone (Nortrel 0.5-35-28 Tablet) 1 each DAILY PO Last administered on 01/18/17 09:33; Admin Dose 1 EACH; Start 01/16/17 at 16:30 ; Stop 02/05/17 at 09:01 Nitrofurantoin Macrocrystals (Macrobid) 100 mg BID PO Last administered on 01/19 09:40; Admin Dose 100 MG; Start 01/17/17 at 21:00 Oxybutynin Chloride (Ditropan Xl) 10 mg DAILY PO Last administered on 09:40; Admin Dose 10 MG; Start 01/17/17 at 22:00 Phenazopyridine HCl (Pyridium) 200 mg TID PO Last administered on 01/19/17 12: 30; Admin Dose 200 MG; Start 01/17/17 at 22:00 Lactobacillus Acidophilus (Florajen3 Capsule) 1 each BID PO Last administered on 01/19/17 12:30; Admin Dose 1 EACH; Start 01/18/17 at 21:00 HUDSON DOLL NP January 19, 2017 13:00
[2017-01-19] MEDS: ONDANSETRON 4 MG INJ IV PRN (14:25)
[2017-01-19] MEDS: NORETHINDRONE-ETHINYL ESTR 0.5-35 TAB PO SCH (14:29)
[2017-01-19 19:50] VITALS: BP 132/101; RESP 20
[2017-01-19 19:56] LABS: ADD UMIC YES; URINE BILIRUBIN (Dip) NEGATIVE (NEGATIVE); URINE BLOOD (Dip) TRACE (NEGATIVE); URINE KETONES (Dip) NEGATIVE (NEGATIVE); URINE LEUKOCYTE ESTERASE (Dip) NEGATIVE (NEGATIVE); URINE TOTAL PROTEIN (Dip) 1+ (NEGATIVE); URINE UROBILINOGEN (Dip) 4.0 E.U./dL (0.1-1.0)
[2017-01-19 20:13] LABS: URINE NITRITE (Dip) POSITIVE (NEGATIVE)
[2017-01-19 20:16] LABS: URINE COLOR AMBER (YELLOW)
[2017-01-19 20:18] LABS: URINE RBCS NONE SEEN /HPF (0)
[2017-01-19] MEDS: SERTRALINE 100 MG TAB PO SCH (20:26)
[2017-01-19] MEDS: traZODone 100 MG TAB PO SCH (20:27)
--- NOTE | 2017-01-19 23:36 | PN ---
Date/Time of Note Date/Time of Note DATE: 01/19/17 TIME: 23:35 Assessment/Plan VTE Prophylaxis VTE Prophylaxis Intervention: other Lines/Catheters IV Catheter Type (from Nrsg): Peripheral IV Urinary Cath still in place: No Assessment/Plan Chief Complaint/Hosp Course PELVIC PAIN better POSS UTI INT CYSTITIS HX PLAN PER AND ID per dr ibrahim CONTINUE PAIN MEDS Problems: Subjective 24 Hr Interval Summary Gastrointestinal: no complaints Genitourinary: no complaints Musculoskeletal: no complaints Exam/Review of Systems Vital Signs Vitals Vital Signs Date Time Temp Pulse Resp B/P Pulse Ox O2 Delivery O2 Flow Rate FiO2 01/19/17 19:50 98.7 78 20 132/101 96 Intake and Output 01/18/17 01/18/17 01/19/17 15:00 23:00 07:00 Intake Total 500 ml 600 ml Output Total 1165 ml Balance -665 ml 600 ml Exam Respiratory: clear to auscultation Cardiovascular: regular rate and rhythm Gastrointestinal: soft Musculoskeletal: nl extremities to inspection Results Result Diagram: 01/16/17 0550 01/16/17 0550 Results 24 hrs Laboratory Tests Test 01/19/17 16:30 Urine Color KWAME Urine Clarity CLEAR Urine pH 5.0 Urine Specific [place] 1.010 Urine Ketones NEGATIVE Urine Nitrite POSITIVE H Urine Bilirubin NEGATIVE Urine Urobilinogen 4.0 E.U./dL H Urine Leukocyte Esterase NEGATIVE Urine Microscopic RBC NONE SEEN Urine Microscopic WBC 0-2 Urine Hemoglobin TRACE Urine Glucose 0.1% H Urine Total Protein 1+ H Medications Medications Current Medications Sodium Chloride (NS) 1,000 ml @ 75 mls/hr [id number] IV Last administered on 01/19 10:06; Admin Dose 75 MLS/HR; Start 01/15/17 at 06:06 Lorazepam (Ativan) 0.5 mg Q6H PRN IV ANXIETY Last administered on 01/18/17 09: 28; Admin Dose 0.5 MG; Start 01/15/17 at 06:30 Acetaminophen (Tylenol Tab) 650 mg Q6H PRN PO PAIN LEVEL 1-3 OR FEVER; Start at 06:30 Famotidine (Pepcid) 20 mg Q12 PO Last administered on 01/19/17 20:26; Admin Dose 20 MG; Start 01/15/17 at 09:00 Bupropion HCl (Wellbutrin Xl) 300 mg DAILY PO Last administered on 01/19/17 12 :30; Admin Dose 300 MG; Start 01/15/17 at 09:00 Clonazepam (Klonopin) 1 mg BID PRN PO ANXIETY; Start 01/15/17 at 06:30 Trazodone HCl (Desyrel) 100 mg QHS PO Last administered on 01/18/17 21:05; Admin Dose 100 MG; Start 01/15/17 at 21:00 Miscellaneous Information 54 mg DAILY PO ; Start 01/15/17 at 09:00; Status UNV Miscellaneous Information (*Order Clarification Bulletin) Methylphenidate HCl ( Concerta) 54 MG: PLE... Q8H XX ; Start 01/15/17 at 11:00 Ondansetron HCl (Zofran Inj) 4 mg Q4H PRN IV NAUSEA AND/OR VOMITING Last administered on 01/19/17 14:25; Admin Dose 4 MG; Start 01/15/17 at 13:00 Sertraline HCl (Zoloft) 200 mg QHS PO Last administered on 01/19/17 20:26; Admin Dose 200 MG; Start 01/15/17 at 21:00 Metoclopramide HCl (Reglan) 10 mg Q6H PRN IV nausea/vomiting Last administered on 01/16/17 13:22; Admin Dose 10 MG; Start 01/15/17 at 14:30 Oxycodone HCl (Roxicodone) 10 mg Q6H PRN PO break through pain 4-6 Last administered on 01/19/17 19:55; Admin Dose 10 MG; Start 01/15/17 at 17:00; Status Future hold Hydromorphone HCl (Dilaudid) 2 mg Q4H PRN IV SEVERE PAIN LEVEL 7-10 Last administered on 01/19/17 21:27; Admin Dose 2 MG; Start 01/15/17 at 22:00 Ethinyl Estradiol/ Norethindrone (Nortrel 0.5-35-28 Tablet) 1 each DAILY PO Last administered on 01/19/17 14:29; Admin Dose 1 EACH; Start 01/16/17 at 16:30 ; Stop 02/05/17 at 09:01 Nitrofurantoin Macrocrystals (Macrobid) 100 mg BID PO Last administered on 01/19 20:26; Admin Dose 100 MG; Start 01/17/17 at 21:00 Oxybutynin Chloride (Ditropan Xl) 10 mg DAILY PO Last administered on 09:40; Admin Dose 10 MG; Start 01/17/17 at 22:00 Phenazopyridine HCl (Pyridium) 200 mg TID PO Last administered on 01/19/17 20: 26; Admin Dose 200 MG; Start 01/17/17 at 22:00 Lactobacillus Acidophilus (Florajen3 Capsule) 1 each BID PO Last administered on 01/19/17 20:32; Admin Dose 1 EACH; Start 01/18/17 at 21:00 DENVER MITCHELL MD January 19, 2017 23:36
[2017-01-20] MEDS: SOD CHLORIDE 0.9% 1,000 ML IV SCH ×2 (01:01→05:00)
[2017-01-20] MEDS: HYDROmorphONE 2 MG/ML SYG IV PRN ×4 (01:31→14:50)
[2017-01-20] MEDS: METHYLPHENIDATE HCL 54 MG XX SCH ×2 (03:00→11:00)
[2017-01-20] MEDS: [UNRECOGNIZED DRUG - OTHER] XX SCH ×2 (03:00→11:00)
[2017-01-20 08:09] VITALS: BP 133/76; RESP 18
[2017-01-20] MEDS: L ACIDOPHIL/B LACTIS/B LONGUM CAPSULE PO SCH ×2 (09:00→12:48)
[2017-01-20] MEDS: PHENAZOPYRIDINE 200 MG TAB PO SCH ×2 (09:30→12:42)
[2017-01-20] MEDS: OXYBUTYNIN (XL) 5 MG TAB PO SCH (09:31)
[2017-01-20] MEDS: BUPROPION (XL) 150 MG TAB PO SCH (09:31)
[2017-01-20] MEDS: NITROFURANTOIN (SR) 100 MG CAP PO SCH (09:31)
[2017-01-20] MEDS: FAMOTIDINE 20 MG TAB PO SCH (09:32)
[2017-01-20] MEDS: NORETHINDRONE-ETHINYL ESTR 0.5-35 TAB PO SCH (09:33)
[2017-01-20] MEDS: oxyCODONE 5 MG TAB PO PRN (09:37)
--- NOTE | 2017-01-20 13:16 | CONS ---
Date/Time of Note Date/Time of Note DATE: 01/20/17 TIME: 13:15 Assessment/Plan Assessment/Plan Chief Complaint/Hosp Course SUBJECTIVE: No acute changes. Awake, nad No fevers. MICROBIOLOGY: Urine culture growing E. coli, less than 10,000 colonies. ANTIMICROBIALS: Macrobid PHYSICAL EXAMINATION: GENERAL: Well-developed, well-nourished young woman, who is alert, in no distress. HEENT: Head atraumatic, normocephalic. Sclerae anicteric. Buccal mucosa dry. NECK: Supple. CHEST: Chest rise is symmetrical. Breath sounds clear. HEART: S1, S2. ABDOMEN: Soft, bowel sounds present. EXTREMITIES: Without cyanosis. ASSESSMENT: 1. Urinary tract infection. Urine culture grew Escherichia coli, but less than 10,000 colonies. 2. Interstitial cystitis, status post hydrodilation==> urology follows. 3. History of von Willebrand disease disease. 4. Chronic pain with opioid dependence. PLAN: Stable, dc abx and observe DW staff /pt Problems: Consultation Date/Type/Reason Admit Date/Time January 15, 2017 at 05:02 Type of Consultation: ID Exam/Review of Systems Vital Signs Vitals Vital Signs Date Time Temp Pulse Resp B/P Pulse Ox O2 Delivery O2 Flow Rate FiO2 01/20/17 08:09 98.6 83 18 133/76 96 Intake and Output 01/19/17 01/19/17 01/20/17 15:00 23:00 07:00 Intake Total 380 ml 1360 ml 1900 ml Output Total 1050 ml Balance 380 ml 310 ml 1900 ml Results Result Diagram: 01/16/17 0550 01/16/17 0550 Results 24 hrs Laboratory Tests Test 01/19/17 16:30 Urine Color KWAME Urine Clarity CLEAR Urine pH 5.0 Urine Specific [place] 1.010 Urine Ketones NEGATIVE Urine Nitrite POSITIVE H Urine Bilirubin NEGATIVE Urine Urobilinogen 4.0 E.U./dL H Urine Leukocyte Esterase NEGATIVE Urine Microscopic RBC NONE SEEN Urine Microscopic WBC 0-2 Urine Hemoglobin TRACE Urine Glucose 0.1% H Urine Total Protein 1+ H Medications Medications Current Medications Sodium Chloride (NS) 1,000 ml @ 75 mls/hr [id number] IV Last administered on 01/20t 01:01; Admin Dose 75 MLS/HR; Start 01/15/17 at 06:06 Lorazepam (Ativan) 0.5 mg Q6H PRN IV ANXIETY Last administered on 01/18/17 09: 28; Admin Dose 0.5 MG; Start 01/15/17 at 06:30 Acetaminophen (Tylenol Tab) 650 mg Q6H PRN PO PAIN LEVEL 1-3 OR FEVER; Start at 06:30 Famotidine (Pepcid) 20 mg Q12 PO Last administered on 01/20/17 09:32; Admin Dose 20 MG; Start 01/15/17 at 09:00 Bupropion HCl (Wellbutrin Xl) 300 mg DAILY PO Last administered on 01/20/17 09 :31; Admin Dose 300 MG; Start 01/15/17 at 09:00 Clonazepam (Klonopin) 1 mg BID PRN PO ANXIETY; Start 01/15/17 at 06:30 Trazodone HCl (Desyrel) 100 mg QHS PO Last administered on 01/18/17 21:05; Admin Dose 100 MG; Start 01/15/17 at 21:00 Miscellaneous Information 54 mg DAILY XX ; Start 01/15/17 at 09:00; Status UNV Miscellaneous Information (*Order Clarification Bulletin) Methylphenidate HCl ( Concerta) 54 MG: PLE... Q8H XX ; Start 01/15/17 at 11:00 Ondansetron HCl (Zofran Inj) 4 mg Q4H PRN IV NAUSEA AND/OR VOMITING Last administered on 01/19/17 14:25; Admin Dose 4 MG; Start 01/15/17 at 13:00 Sertraline HCl (Zoloft) 200 mg QHS PO Last administered on 01/19/17 20:26; Admin Dose 200 MG; Start 01/15/17 at 21:00 Metoclopramide HCl (Reglan) 10 mg Q6H PRN IV nausea/vomiting Last administered on 01/16/17 13:22; Admin Dose 10 MG; Start 01/15/17 at 14:30 Oxycodone HCl (Roxicodone) 10 mg Q6H PRN PO break through pain 4-6 Last administered on 01/20/17 09:37; Admin Dose 10 MG; Start 01/15/17 at 17:00; Status Future hold Hydromorphone HCl (Dilaudid) 2 mg Q4H PRN IV SEVERE PAIN LEVEL 7-10 Last administered on 01/20/17 10:33; Admin Dose 2 MG; Start 01/15/17 at 22:00 Ethinyl Estradiol/ Norethindrone (Nortrel 0.5-35-28 Tablet) 1 each DAILY PO Last administered on 01/20/17 09:33; Admin Dose 1 EACH; Start 01/16/17 at 16:30 ; Stop 02/05/17 at 09:01 Nitrofurantoin Macrocrystals (Macrobid) 100 mg BID PO Last administered on 01/20 09:31; Admin Dose 100 MG; Start 01/17/17 at 21:00 Oxybutynin Chloride (Ditropan Xl) 10 mg DAILY PO Last administered on 09:31; Admin Dose 10 MG; Start 01/17/17 at 22:00 Phenazopyridine HCl (Pyridium) 200 mg TID PO Last administered on 01/20/17 12: 42; Admin Dose 200 MG; Start 01/17/17 at 22:00 Lactobacillus Acidophilus (Florajen3 Capsule) 1 each BID PO Last administered on 01/20/17 12:48; Admin Dose 1 EACH; Start 01/18/17 at 21:00 HUDSON DOLL NP January 20, 2017 13:16
--- NOTE | 2017-01-20 15:04 | PDOCDIS ---
Discharge Instructions CONDITION Patient Condition: Stable ACTIVITY: Activity Restrictions: Slowly Increase Activity FOLLOW UP/APPOINTMENTS Appointments f/u dr ramirez 1 wk pcp DENVER MITCHELL MD January 20, 2017 15:04
[2017-01-20] MEDS: ONDANSETRON 4 MG INJ IV PRN (15:05)
[2017-01-20] MEDS ORDERED: FLUC150T17 PO (15:07)
[2017-01-20] MEDS ORDERED: OXYB5TAB22 PO (15:07)
[2017-01-20] MEDS ORDERED: PHEN-538 PO (15:07)
[2017-01-20] MEDS ORDERED: L.AC460C PO (15:07)
[2017-01-20] MEDS ORDERED: METHYLPHENIDATE 5 MG TAB PO SCH (18:00)
== END 2017-01-20 17:50 | disposition home or self-care (01) | DRG 690 ==
LOC: E/R 00:52 → TEL 05:02 → MS2 01-19 02:45
PROVIDERS: ADMIT Internal Medicine Nephrology; ATTEND Internal Medicine Nephrology
DX: N39.0 Urinary tract infection, site not specified (principal); D68.0 Von Willebrand disease; F11.20 Opioid dependence, uncomplicated; N30.10 Interstitial cystitis (chronic) without hematuria; K59.03 Drug induced constipation; G89.4 Chronic pain syndrome; E87.6 Hypokalemia; F41.9 Anxiety disorder, unspecified; T40.2X5A Adverse effect of other opioids, initial encounter; B96.20 Unspecified Escherichia coli [E. coli] as the cause of diseases classified elsewhere; F32.9 Major depressive disorder, single episode, unspecified; Y92.9 Unspecified place or not applicable; Z88.6 Allergy status to analgesic agent
CPT/HCPCS: 36415; 80053; 80306; 80307; 81001; 81003; 83690; 85025; 87086; 96374; 96375; 96376; 97161; J0696; J1170; J2060; J2405; J2765; J7030

== ENCOUNTER 2018-04-24 17:45 | Observation (INO) | END 2018-04-26 19:05 | disposition home or self-care (01) ==